=== PATIENT | female | born 1950 | race Caucasian/White ===

== ENCOUNTER 2022-01-20 15:18 | Emergency (ER) | payer MEDICARE, SELFPAY ==
--- NOTE | ~2022-01-20 | CT_ITS ---
EXAMINATION: CT abdomen pelvis wo con DATE: 01/20/2022 17:33 INDICATION: Abdominal cramping TECHNIQUE: Computed tomography (CT) of the abdomen and pelvis was performed without intravenous contr ast. The dose-length product (DLP) was 244.59 mGy-cm. Automated exposure control and iterative recons truction technique were employed. COMPARISON: None FINDINGS: Minimal dependent atelectasis is present in the lung bases. The heart size is normal. Bilat eral breast implants are noted. The liver, spleen, pancreas, gallbladder, and adrenal glands are norm al. The kidneys are unremarkable. No pathologically enlarged abdominal or pelvic lymph nodes are iden tified. There is no free intraperitoneal gas or evidence of bowel obstruction. Colonic diverticulosis is present without evidence of diverticulitis. There is severe lumbar spondylosis at L5-S1. There is an age-indeterminate burst fracture of T12. A fat-containing umbilical hernia is noted. IMPRESSION: 1. No CT correlate for the patient's symptoms. Reviewed, dictated and finalized at location F.
[2022-01-20 15:26] VITALS: BP 146/80; PULSE 94; RESP 16; TEMP 36.5; O2SAT 99
--- NOTE | 2022-01-20 17:22 | ED.ABDPAIN ---
HPI - Abdominal Pain General Chief Complaint: Abdominal Pain Stated Complaint: abd pain/constipation Time Seen by Provider: 01/20/22 17:07 History of Present Illness HPI narrative: 71-year-old female in no distress presents the emergency room for evaluation of abdominal cramping and constipation. Patient states she has been dealing with constipation for over 3 weeks, and has taken an Ex-Lax on 5 occasions over the course of that time with some resolution of symptoms. Patient states she has a low fiber diet. Patient denies fever. Patient states she has bloating and a fullness feeling throughout the day. Patient states that she sometimes get nauseated after she eats. Patient reports a small bowel movement today. Patient has no history of diverticulitis, or abdominal surgeries. Related Data Allergies Allergy/AdvReac Type Severity Reaction Status Date / Time No Known Allergies Allergy Unverified 11/18/20 16:02 Review of Systems Review of Systems: CONSTITUTIONAL: Denies fever, chills, or sweats. EYES: Denies visual changes, redness, or discharge. ENT: Denies rhinorrhea, congestion, sore throat, or otalgia. CARDIOVASCULAR: Denies chest pain, palpitations, or edema. RESPIRATORY: Denies cough or dyspnea. GASTROINTESTINAL: Reports abdominal bloating, occasional nausea, constipation GENITOURINARY: Denies dysuria or hematuria. SKIN: Denies rash or itching. MUSCULOSKELETAL: Denies back pain, joint pain, or myalgia. NEUROLOGIC: Denies headache, numbness, dizziness, or weakness. PSYCHIATRIC: Denies anxiety or depression. PMFSH Social History Social History Smoking status: Never smoker Smoking end date: 10/01/86 Alcohol intake: current Exam Narrative: GENERAL: Well-appearing, well-nourished, and in no acute distress. HEAD: Normocephalic, atraumatic. EYES: PERRLA and EOMI. CHEST: Clear to auscultation. No respiratory distress. No wheezes rales or rhonchi HEART: Regular rate and rhythm. No murmur heard. Normal peripheral pulses. ABDOMEN: Soft, nontender, nondistended, hypoactive bowel sounds EXTREMITIES: Normal range of motion. No edema. SKIN: Warm, dry, no rash. NEURO: No focal deficits. Alert and oriented x3. PSYCH: Normal mood and affect. Course Vital Signs Vital signs: Vital Signs Temperature 36.5 C 01/20/22 15:26 Pulse Rate 94 01/20/22 15:26 Respiratory Rate 16 01/20/22 15:26 Blood Pressure 146/80 H 01/20/22 15:26 Pulse Oximetry 99 01/20/22 15:26 Temperature 36.5 C 01/20/22 15:26 Pulse Rate 96 01/20/22 17:39 Respiratory Rate 18 01/20/22 17:39 Blood Pressure 141/71 H 01/20/22 17:39 Pulse Oximetry 98 01/20/22 17:39 MDM - Abdominal Pain MDM Narrative Medical decision making narrative: 71-year-old female presents the emergency room for Ration of constipation, bloating, and generalized abdominal pain for [address] scan showed no intra-abdominal abnormality. CBC and CMP were largely unremarkable. Differential Diagnosis Differential diagnosis: Likely constipation Lab Data Attestation: I reviewed the patient's lab results. Result diagrams: 01/20/22 17:47 01/20/22 17:47 Labs: Lab Results 01/20/22 01/20/22 01/20/22 Range/Units 17:47 17:47 17:47 WBC 11.9 H (4.5-10.0) K/mm3 RBC 4.69 (4.2-5.4) M/mm3 Hgb 14.1 (12.0-15.0) g/dL Hct 44.5 (37.0-47.0) % MCV 94.9 (80-100) fl MCH 30.1 (26-34) pg MCHC 31.7 L (32-36) g/dl RDW 13.1 (11.5-14.5) % Plt Count 209 (150-375) k/mm3 MPV 9.7 (7.4-10.4) fl Immature Gran % (Auto) 0.3 (0-0.5) % Neut % (Auto) 78.4 H (45.5-73.1) % Lymph % (Auto) 13.1 L (18.3-44.2) % [place] % (Auto) 6.6 (2.6-8.5) % Eos % (Auto) 1.3 (0-4.4) % Baso % (Auto) 0.3 (0.2-1.2) % Lymph # (Auto) 1.56 (0.9-3.2) K/mm3 [place] # (Auto) 0.8 H (0.1-0.6) K/mm3 Eos # (Auto) 0.2 (0-0.3) K/mm3 Baso # (Auto)
[2022-01-20 17:39] VITALS: BP 141/71; PULSE 96; RESP 18; O2SAT 98
[2022-01-20 17:54] LABS: Basophils Percent Auto 0.3 % (0.2-1.2); Eosinophils Absolute Auto 0.2 K/mm3 (0-0.3); Eosinophils Percent Auto 1.3 % (0-4.4); Hematocrit 44.5 % (37.0-47.0); Hemoglobin 14.1 g/dL (12.0-15.0); Immature Granulocyte Absolute 0.04 K/mm3 (0.00-0.031); Immature Granulocyte Percent A 0.3 % (0-0.5); Lymphocytes Absolute Auto 1.56 K/mm3 (0.9-3.2); Lymphocytes Percent Auto 13.1 % (18.3-44.2); Mean Corpuscular HGB Conc 31.7 g/dl (32-36); Mean Corpuscular Hemoglobin 30.1 pg (26-34); Mean Corpuscular Volume 94.9 fl (80-100); Mean Platelet Volume 9.7 fl (7.4-10.4); Monocytes Absolute Auto 0.8 K/mm3 (0.1-0.6); Monocytes Percent Auto 6.6 % (2.6-8.5); Neutrophils Absolute Auto 9.3 K/mm3 (1.3-6.7); Neutrophils Percent Auto 78.4 % (45.5-73.1); Platelet Count Result 209 k/mm3 (150-375); Red Blood Count 4.69 M/mm3 (4.2-5.4); Red Cell Distribution Width 13.1 % (11.5-14.5); White Blood Count 11.9 K/mm3 (4.5-10.0)
[2022-01-20 17:59] LABS: Add Urine Microscopic? YES; Amorphous Sediment Urine Few; Appearance Urine Cloudy (Clear); Bilirubin Urine Negative (Negative); Blood Urine Negative (Negative); Color Urine Yellow (Yellow); Glucose Urine UA 1+ mg/dL (Negative); Ketones Urine Trace mg/dL (Negative); Leukocyte Esterase Ur Negative LEU/UL (Negative); Mucus Urine Rare /lpf; Nitrate Urine Negative (Negative); Protein Urine Negative (Negative); RBC Urine 0-2 /hpf (0-2); Squamous Epithelial Cell Urine Rare /hpf (Few); Urobilinogen Urine Negative mg/dL (<2.0); WBC Urine 0-3 /hpf
[2022-01-20 18:05] LABS: Alanine Aminotransferase 73 U/L (4-35); Albumin Level 4.3 g/dL (3.5-5.1); Alkaline Phosphatase 97 U/L (38-126); Anion Gap 5 mmol/L (8-16); Aspartate Amino Transferase 44 U/L (14-36); Bilirubin,Total 0.1 mg/dL (0.2-1.3); Blood Urea Nitrogen 17 mg/dL (7-17); Calcium 9.4 mg/dL (8.4-10.2); Carbon Dioxide 30 mmol/L (22-30); Chloride 102 mmol/L (98-107); Estimated CRCL calculation 55 ml/min; Estimated Glomerular Filt Rate > 60; Glucose 193 mg/dL (65-110); Potassium 4.1 mmol/L (3.4-5.0); Sodium 137 mmol/L (137-145)
== END 2022-01-20 18:45 | disposition home or self-care (01) ==
LOC: ANHED 18:26
PROVIDERS: Emergency Provider Nurse Practitioner Family; PCP Internal Medicine
DX: K59.00 Constipation, unspecified (principal); Z87.891 Personal history of nicotine dependence
CPT/HCPCS: 36415; 74176; 80053; 81001; 85025; 99284

== ENCOUNTER 2022-02-13 12:34 | Outpatient (CLI) | payer MEDICARE, SELFPAY ==
--- NOTE | ~2022-02-13 | XR_ITS ---
XR shoulder RT min 2V 02/13/2022 13:03 Indication: Right shoulder pain Procedure: 4 views right shoulder Comparison: 07/27/2016 Findings: There is mild-moderate polyarticular osteoarthritis of the right shoulder. Osteopenia. Ther e are healed right rib fractures. No other fracture or traumatic malalignment. No significant soft ti ssue abnormality. No foreign bodies. Impression: 1: Mild-moderate polyarticular osteoarthritis of the right shoulder. Reviewed, dictated and finalized at location A. Impression: 1: Mild-moderate polyarticular osteoarthritis of the right shoulder.
== END 2022-02-13 12:35 | disposition home or self-care (01) ==
PROVIDERS: PCP Internal Medicine; Visit Provider Internal Medicine
DX: M19.011 Primary osteoarthritis, right shoulder (principal); G89.29 Other chronic pain; R53.1 Weakness
CPT/HCPCS: 73030

== ENCOUNTER 2022-05-10 14:06 | Outpatient (CLI) | payer MEDICARE, SELFPAY ==
--- NOTE | ~2022-05-10 | MM_ITS ---
EXAMINATION: MM scrn yvonne implant BI w justin HISTORY: Screening mammogram TECHNIQUE: Craniocaudal and mediolateral oblique 3-D tomosynthesis images with implant displacement a nd synthetic 2-D images were generated. Craniocaudal and mediolateral oblique views of the breasts wi thout implant displacement were obtained using full field digital mammography. CAD analysis was submi tted and interpreted. COMPARISON: No prior mammogram is available for comparison at this institution. BREAST PARENCHYMAL COMPOSITION: There are scattered areas of fibroglandular density. FINDINGS: There is no evidence of suspicious mass, calcification, or architectural distortion to sugg est malignancy in either breast. IMPRESSION: 1. No mammographic evidence of malignancy. 2. Recommend routine screening mammography in one year. BI-RADS Category 1: Negative Reviewed, dictated and finalized at location A.
--- NOTE | ~2022-05-10 | DEXA_ITS ---
Bone Density Report Name: ASA BREWER Age: 71 Sex: Female Ethnicity: White Date of : 1950 Indication: postmenopausal; screening for osteoporosis; height loss; prior fracture; Referring Provider: PHILLIP MOSCOSO Study: Bone densitometry was performed. Exam Date: May 10, 2022 Accession number: [id number] Bone Density: Region BMD T-score Z-score Classification AP Spine(L1-L4) 0.927 -1.1 1.1 Osteopenia Femoral Neck (Left) 0.611 -2.1 -0.3 Osteopenia Total Hip (Left) 0.732 -1.7 -0.1 Osteopenia Femoral Neck (Right) 0.642 -1.9 0.0 Osteopenia Total Hip (Right) 0.732 -1.7 -0.1 Osteopenia Total Hip Mean 0.732 -1.7 -0.1 Osteopenia World Health Organization criteria for BMD impression classify patients as: Normal (T-score at or above -1.0), Osteopenia (T-score between -1.0 and -2.5), or Osteoporosis (T-score at or below -2.5). 10-year Fracture Risk(1): Major Osteoporotic Fracture 18% Hip Fracture 4.1% Reported Risk Factors: [place] (), Neck BMD=0.611, BMI=20.6, previous fracture (1) FRAX(R) Version 3.08. Fracture probability calculated for an untreated patient. Fracture probability may be lower if the patient has received treatment. Clinical Information Provided by Patient: Has had a low trauma fracture Has used the following medications: Vitamin D Patient maximum height was 65 Menopause Age: 55 Does not regularly consume dairy products Drinks caffeinated beverages Onset of menses at age 14 Number of children 0 Impression: The patient has low bone mass, based on the Left Femoral Neck T-score. The patient has an estimated ten-year risk of hip fracture of 4.1% and an estimated ten-year risk of major fracture of 18%, based on the WHO FRAX algorithm. The patient has risk factors, including: previous fracture. Discussion: BONE DENSITY IS LOW AT ONE OR MORE SKELETAL SITES. THE PATIENT'S BMD AND CLINICAL RISK FACTORS CONTRIBUTE TO THIS PATIENT'S INCREASED RISK OF FRACTURE. This patient's lowest T-score is low at one or more skeletal sites. It meets the World Health Organization's (WHO) criteria for ?low bone mass? (T-score between -1.0 and -2.5). The patient's 10-year risk of hip fracture as calculated by FRAX exceeds the threshold where pharmacological therapy is recommended by the National Osteoporosis Foundation (NOF). However, all treatment decisions require clinical judgment and consideration of individual patient factors, including patient preferences, comorbidities, previous drug use, risk factors not captured in the FRAX model (e.g., frailty, falls, vitamin D deficiency, increased bone turnover, interval significant decline in bone density) and possible under or overestimation of fracture risk by FRAX. The patient should follow a healthful lifestyle (good nutr
== END 2022-05-10 14:07 | disposition home or self-care (01) ==
PROVIDERS: PCP Internal Medicine; Visit Provider Internal Medicine
DX: Z12.31 Encounter for screening mammogram for malignant neoplasm of breast (principal); Z78.0 Asymptomatic menopausal state; M85.89 Other specified disorders of bone density and structure, multiple sites
CPT/HCPCS: 77063; 77067; 77080

== ENCOUNTER 2022-11-01 15:16 | Outpatient (CLI) | payer MEDICARE, SELFPAY ==
--- NOTE | ~2022-11-01 | XR_ITS ---
EXAMINATION: XR chest 2V DATE: 11/01/2022 15:49 INDICATION: Cough, unspecified. TECHNIQUE: Frontal and lateral views of the chest were obtained. COMPARISON: CT abdomen and pelvis 01/20/2022 FINDINGS: There is mild scarring at the lung apices. No pleural effusion or pneumothorax. The heart s ize is normal. There are multiple old healed right rib fractures. There is a chronic burst fracture o f T12 superior endplate. IMPRESSION: 1. Mild scarring at the lung apices. Reviewed, dictated and finalized at location A. 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
== END 2022-11-01 15:17 | disposition home or self-care (01) ==
LOC: ANHIMG 15:20
PROVIDERS: PCP Internal Medicine; Visit Provider Internal Medicine
DX: R05.9 Cough, unspecified (principal); J98.4 Other disorders of lung
CPT/HCPCS: 71046

== ENCOUNTER 2023-03-26 19:32 | Emergency (ER) | payer MEDICARE, SELFPAY ==
--- NOTE | ~2023-03-26 | XR_ITS ---
EXAM: XR foot RT min 3V, XR ankle RT min 3V DATE: 03/26/2023 20:44 (accession [id number]), 03/26/2023 20:45 (accession [id number]) HISTORY: Fall 2 days . COMPARISON: None available. FINDINGS: Decreased mineralization. No fracture or dislocation. No lytic or blastic lesion. Severe d egenerative change at the first MTP joint. Mild degenerative change in the tibiotalar joint and multi ple midfoot joints. No erosion or periosteal change. Forefoot soft tissue swelling. Mild soft tissue swelling about the ankle. IMPRESSION: No acute osseous finding in the right foot or ankle. Reviewed, dictated and finalized at location K. IMPRESSION: No acute osseous finding in the right foot or ankle.
--- NOTE | ~2023-03-26 | XR_ITS ---
EXAM: XR hand RT min 3V, XR wrist RT 2V DATE: 03/26/2023 20:45 (accession [id number]), 03/26/2023 20:44 (accession [id number]) HISTORY: Fall bruising . COMPARISON: None available. FINDINGS: Decreased mineralization. Comminuted mildly impacted fracture of the distal right radius, with extension of fracture lines to the joint space. No lytic or blastic lesion. Scattered mild and m oderate osteoarthritic changes in the hand and wrist, most pronounced at the trapeziometacarpal joint . No erosion or periosteal change. Soft tissue swelling about the wrist. IMPRESSION: Comminuted, intra-articular, mildly impacted fracture of the distal right radius. Reviewed, dictated and finalized at location K. IMPRESSION: Comminuted, intra-articular, mildly impacted fracture of the distal right radius.
[2023-03-26 19:33] VITALS: BP 122/71; PULSE 89; RESP 18; TEMP 36.4; O2SAT 98
[2023-03-26] MEDS: ACETAMINOPHEN 500 MG TABLET 1000 MG PO (20:35)
[2023-03-26] MEDS: IBUPROFEN 400 MG TABLET 800 MG PO (20:36)
--- NOTE | 2023-03-26 22:05 | ED.GENADULT ---
HPI - General Adult General Chief complaint: Fall Stated complaint: fall/r wrist/foot pain Time Seen by Provider: 03/26/23 19:57 History of Present Illness HPI narrative: This is a 72-year-old female presenting ED after a fall. Patient was in [place] and tripped. she ended up kicking a wall and catching herself on her right wrist. She has had significant bruising of both her right ankle and her right wrist. For the ankle she has been able to bear weight able to walk. The risks has been more painful and she is concerned that she has a fractured wrist. Related Data Home Medications Medication Instructions Recorded Confirmed coenzyme Q10 75 mg capsule (Ultra 75 mg PO DAILY 02/07/22 11/01/22 CoQ10) glucosamine-chondroitin 500 mg-400 1 tablet PO DAILY 02/07/22 11/01/22 mg tablet vitamin E mixed 1,000 unit capsule unit PO 02/07/22 11/01/22 calcium carbonate 600 mg-vitamin 1 cap PO BID 05/16/22 11/01/22 D3 25 mcg (1,000 unit) capsule Allergies Allergy/AdvReac Type Severity Reaction Status Date / Time No Known Allergies Allergy Verified 03/26/23 19:33 [facility] Past Medical History Medical History BMI 20.0-20.9, adult BMI 21.0-21.9, adult Chronic sinusitis Constipation Cough DM type 2 (diabetes mellitus, type 2) CHENG (dyspnea on exertion) Dyslipidemia Elevated glucose Elevated LFTs Encounter to establish care Follow up Hx of colonic polyps Shoulder pain, right Social History Social History Smoking status: Former smoker Smoking end date: 10/01/86 Alcohol intake: current Lack of Transportation: No Lack of Food: Never True Current Housing: I Have Housing Concerned About Future Housing: No Difficulty Paying Gas/Electric Bills: No Difficulty Paying for Meds: No Currently Unemployed: No Education: Master's Degree or Higher Difficulty w/ Childcare or Family Care: No Exam Narrative: APPEARANCE: No apparent distress. Head: atraumatic. EYES: EOMI, NOSE: Atraumatic NECK: Trachea midline RESPIRATORY: No increased rate of breathing CARDIOVASCULAR: RRR, ABDOMINAL: Non-distended MUSCULOSKELETAl: focal exam of the right lower extremity revealed significant bruising and swelling diffusely over the foot. There is point tenderness over the ATFL. No tenderness over the lateral malleoli or the base of the 5th metatarsal. Focal exam of the right wrist show point tenderness over the distal radius, no scaphoid tenderness, foil operator strength intact, cap refill less than 2 seconds. neurovascularly intact. NEURO: Alert. Moving 4/4 extremities SKIN:: Warm, dry. Normal color PSYCHIATRIC: Normal affect Course Vital Signs Vital signs: Vital Signs Temperature 97.5 F L 03/26/23 19:33 Pulse Rate 89 03/26/23 19:33 Respiratory Rate 18 03/26/23 19:33 Blood Pressure 122/71 03/26/23 19:33 Pulse Oximetry 98 03/26/23 19:33 Oxygen Delivery Room Air 03/26/23 19:33 Temperature 97.5 F L 03/26/23 19:33 Pulse Rate 89 03/26/23 19:33 Respiratory Rate 18 03/26/23 19:33 Blood Pressure 122/71 03/26/23 19:33 Pulse Oximetry 98 03/26/23 19:33 Oxygen Delivery Room Air 03/26/23 19:33 Procedures Orthopedic Splinting/Casting Injury #1: Side: right Upper Extremity Injury Location: wrist Upper Extremity Immobilizer: volar splint Pre-Procedure Neuro Vascular Exam: normal Post-Procedure Neuro Vascular Exam: normal Medical Decision Making MDM Narrative Medical decision making narrative: -Presentation: 72-year-old female presenting 2 days after a fall. She has significant bruising to her right ankle and right hand. X-rays were ordered. -DDX includes but is not limited to: Ankle sprain, ankle fracture, radial fracture, soft tissue injury -Co-morbidities complicating care: none -Social determinants of health: patient o
== END 2023-03-26 22:29 | disposition home or self-care (01) ==
PROVIDERS: Emergency Provider Emergency Medicine; PCP Internal Medicine
DX: S52.501A Unspecified fracture of the lower end of right radius, initial encounter for closed fracture (principal); S93.401A Sprain of unspecified ligament of right ankle, initial encounter; E11.9 Type 2 diabetes mellitus without complications; E78.5 Hyperlipidemia, unspecified; Z87.891 Personal history of nicotine dependence; W01.0XXA Fall on same level from slipping, tripping and stumbling without subsequent striking against object, initial encounter
CPT/HCPCS: 29125; 73100; 73130; 73610; 73630; 99284; A9270; J2405; J2704

== ENCOUNTER 2023-07-03 00:10 | Day surgery (SDC) | payer MEDICARE, SELFPAY ==
[2023-06-21 10:16] VITALS: BMI 20.6
[2023-07-03 08:41] LABS: Glucose Point of Care 73 mg/dl (65-105)
[2023-07-03 08:43] VITALS: BP 127/67; PULSE 80; RESP 16; TEMP 36.2; O2SAT 99
[2023-07-03] MEDS: LACTATED RINGERS 1,000 ML 150 ML IV CONT (08:45)
--- NOTE | 2023-07-03 09:15 | PM.HPGS ---
History of Present Illness History of Present Illness Consent: Risks, benefits, and alternatives have been discussed and questions answered. Patient agrees to proceed with procedure. Chief complaint: personal hx of colon polyps Narrative: Georgina Lilly is a 72 year old female Presents for screening colonoscopy. Patient's current weight appetite and bowel movements are normal. Patient denies abdominal pain. She has had no bleeding. Family history noncontributory. Patient was found to have a benign colon polyp at previous colonoscopy 2018. Patient presents today for surveillance colonoscopy. Review of Systems Review of Systems: Review of systems noncontributory. [facility] Past Medical History Medical History (Updated 05/29/23 @ 15:07 by Stephanie Valdez [facility]) Adult BMI 19-24 kg/sq m BMI 20.0-20.9, adult BMI 21.0-21.9, adult Chronic sinusitis Constipation Cough DM type 2 (diabetes mellitus, type 2) CHENG (dyspnea on exertion) Dyslipidemia Elevated glucose Elevated LFTs Encounter for routine adult health examination with abnormal findings Encounter to establish care Follow up Fracture of right wrist Hx of colonic polyps Non-healing skin lesion Shoulder pain, right Social History Social History Smoking status: Never smoker Smoking end date: 10/01/86 Alcohol intake: current Drinks per week: 5 Substance use: never Substance use type: does not use Lack of Transportation: No Lack of Food: Never True Current Housing: I Have Housing Concerned About Future Housing: No Difficulty Paying Gas/Electric Bills: No Difficulty Paying for Meds: No Currently Unemployed: No Education: Master's Degree or Higher Difficulty w/ Childcare or Family Care: No Living arrangements: with family Spiritual care concerns: No Meds Home Medications and Allergies Home Medications Medication Instructions Recorded Confirmed Type glucosamine-chondroitin 500 mg-400 1 tablet PO DAILY 02/07/22 07/03/23 History mg tablet lancets 28 gauge #100 ea 02/20/22 06/21/23 Rx blood sugar diagnostic (OneTouch #100 ea 02/22/22 06/21/23 Rx Ultra Test strips) blood-glucose meter (OneTouch #1 ea 02/22/22 06/21/23 Rx Ultra2 Meter kit) calcium carbonate 600 mg-vitamin 1 cap PO BID 08/16/22 10/03/23 History D3 25 mcg (1,000 unit) capsule acetaminophen 500 mg tablet 1,000 mg PO TID PRN magy 7 days #42 03/26/23 07/03/23 Rx tabs ibuprofen 800 mg tablet 800 mg PO TID PRN pain 7 days #21 03/26/23 07/03/23 Rx tabs alendronate 70 mg tablet 70 mg PO WEEKLY #12 tabs 04/04/23 07/03/23 Rx dapagliflozin propaned 10 1 tablet PO DAILY #90 ea 04/04/23 07/03/23 Rx mg-metformin ER 1,000 mg tablet,ext rel 24hr (Xigduo XR) rosuvastatin 20 mg tablet See Rx Instructions .Route 04/04/23 07/03/23 Rx .COMPLEX #90 tabs vit 1 cap PO DAILY 05/29/23 07/03/23 History C,E,zinc,Cv-tiqka-1-lutein-zeaxanthin 250 mg-2.5 mg-0.5 mg capsule Allergies Allergy/AdvReac Type Severity Reaction Status Date / Time No Known Allergies Allergy Verified 07/03/23 08:40 Vital Signs Vital Signs - 24 hr 07/03/23 08:43 Temperature 97.2 F L Pulse Rate 80 Respiratory Rate 16 Blood Pressure 127/67 Pulse Oximetry 99 Oxygen Delivery Room Air Exam Narrative: Physical exam reveals patient to be alert. Vital signs stable. HEENT exam is unremarkable. Patient is anicteric. Lungs are clear to auscultation and percussion. Heart is without murmur or extra sounds. Abdomen bowel sounds are present soft nontender with no organomegaly. Digital external rectal exam is normal. Assessment and Plan Assessment and plan (1) Hx of colonic polyps: Code(s): Z86.010 - Personal history of colonic polyps Status: Acute Assessment and Plan: Patient presents for screening colonoscopy. She does have a prior history colon polyps. Furthe
--- NOTE | 2023-07-03 09:46 | WPDANESEPPF ---
Anes - Initial Pre Proc Eval Procedure: Operation Date: 07/03/23 10:00 Proposed Procedures p Colonoscopy - Reddy Duong MD Date/Time: 07/03/23 09:46 Surgeon: Reddy Duong MD Pre Op Diagnosis: personal hx of colon polyps Patient Data Age: 72 Gender: F Height: 1.63 m Weight: 50 kg Last Vital Signs Temp 97.2 F L 07/03/23 08:43 Pulse 80 07/03/23 08:43 Resp 16 07/03/23 08:43 BP 127/67 07/03/23 08:43 Pulse Ox 99 07/03/23 08:43 O2 Del Method Room Air 07/03/23 08:43 Allergies Allergy/AdvReac Type Severity Reaction Status Date / Time No Known Allergies Allergy Verified 07/03/23 08:40 Home Medications Medication Instructions Recorded Confirmed Type glucosamine-chondroitin 500 mg-400 1 tablet PO DAILY 02/07/22 07/03/23 History mg tablet lancets 28 gauge #100 ea 02/20/22 06/21/23 Rx blood sugar diagnostic (OneTouch #100 ea 02/22/22 06/21/23 Rx Ultra Test strips) blood-glucose meter (OneTouch #1 02/22/22 06/21/23 Rx Ultra2 Meter kit) calcium carbonate 600 mg-vitamin 1 cap PO BID 05/16/22 07/03/23 History D3 25 mcg (1,000 unit) capsule acetaminophen 500 mg tablet 1,000 mg PO TID PRN magy 7 days #42 03/26/23 07/03/23 Rx tabs ibuprofen 800 mg tablet 800 mg PO TID PRN pain 7 days #21 03/26/23 07/03/23 Rx tabs alendronate 70 mg tablet 70 mg PO WEEKLY #12 tabs 04/04/23 07/03/23 Rx dapagliflozin propaned 10 1 tablet PO DAILY #90 ea 04/04/23 07/03/23 Rx mg-metformin ER 1,000 mg tablet,ext rel 24hr (Xigduo XR) rosuvastatin 20 mg tablet See Rx Instructions .Route 04/04/23 07/03/23 Rx .COMPLEX #90 tabs vit 1 cap PO DAILY 05/29/23 07/03/23 History C,E,zinc,Tp-opiis-3-lutein-zeaxanthin 250 mg-2.5 mg-0.5 mg capsule Laboratory Tests 07/03/23 08:38 POC Capillary Glucose 73 mg/dl (65-105) Patient hx anesthesia problems: none Family hx anesthesia problems: none Results Review: All pre-operative results and documents have been reviewed as part of the pre-operative evaluation. [facility] Past Medical History Medical History (Updated 05/29/23 @ 15:07 by Stephanie Valdez [facility]) Adult BMI 19-24 kg/sq m BMI 20.0-20.9, adult BMI 21.0-21.9, adult Chronic sinusitis Constipation Cough DM type 2 (diabetes mellitus, type 2) CHENG (dyspnea on exertion) Dyslipidemia Elevated glucose Elevated LFTs Encounter for routine adult health examination with abnormal findings Encounter to establish care Follow up Fracture of right wrist Hx of colonic polyps Non-healing skin lesion Shoulder pain, right Social History Social History Smoking status: Never smoker Smoking end date: 10/01/86 Alcohol intake: current Drinks per week: 5 Substance use: never Substance use type: does not use Lack of Transportation: No Lack of Food: Never True Current Housing: I Have Housing Concerned About Future Housing: No Difficulty Paying Gas/Electric Bills: No Difficulty Paying for Meds: No Currently Unemployed: No Education: Master's Degree or Higher Difficulty w/ Childcare or Family Care: No Living arrangements: with family Spiritual care concerns: No Anes - Eval Final PreProcedure Day of Procedure 07/03/23 09:46 Patient weight: normal Heart: regular rate and rhythm Lungs: clear to auscultation Airway: Mallampati scale class II Neurological: alert and oriented Last oral intake: >/= 8 hours ASA classification: II Emergent: no Anesthetic plan: proceed Anesthesia type and monitoring: general GIVS and standard monitoring Results Review: All pre-operative results and documents have been reviewed as part of the pre-operative evaluation. Informed Consent: The patient's anesthetic plan and its attendant risks and benefits were discussed with the patient/family/POA. Questions were solicited and answers provided to the satisfaction of the patient/family/POA.
[2023-07-03] MEDS: SIMETHICONE ORAL SUSPENSION 20 MG/0.3 ML 30 ML BOTTLE 0.6 ML IRRIGATION (10:07)
[2023-07-03 10:15] VITALS: BP 95/47; PULSE 83; RESP 23; O2SAT 96
[2023-07-03 10:25] VITALS: BP 94/49; PULSE 83; RESP 16; O2SAT 97
[2023-07-03 10:35] VITALS: BP 113/69; PULSE 84; RESP 20; O2SAT 100
== END 2023-07-03 10:41 | disposition home or self-care (01) ==
PROVIDERS: PCP Internal Medicine; Visit Provider Internal Medicine Gastroenterology
PROC: 0DJD8ZZ Inspection of Lower Intestinal Tract, Via Natural or Artificial Opening Endoscopic (ICD-10-PCS; CPT 45378; principal; 2023-07-03 10:00)
DX: Z12.11 Encounter for screening for malignant neoplasm of colon (principal); K64.8 Other hemorrhoids; Z86.010 Personal history of colon polyps; E11.9 Type 2 diabetes mellitus without complications; E78.5 Hyperlipidemia, unspecified; Z79.84 Long term (current) use of oral hypoglycemic drugs; Z87.891 Personal history of nicotine dependence
CPT/HCPCS: G0105; 82948; J2704; J7120

== ENCOUNTER 2023-08-13 08:00 | Outpatient (NON) | payer MEDICARE, SELFPAY | END 2023-08-13 08:01 | disposition home or self-care (01) | LOC: ANHLAB 08-15 13:21 | PROVIDERS: PCP Internal Medicine; Visit Provider Nurse Practitioner | DX: L82.1 Other seborrheic keratosis (principal) | CPT/HCPCS: 88305; 88342 ==

== ENCOUNTER 2024-01-21 14:59 | Outpatient (CLI) | payer MEDICARE, SELFPAY ==
--- NOTE | ~2024-01-21 | MM_ITS ---
EXAMINATION: MM scrn yvonne implant BI w justin HISTORY: Screening mammogram TECHNIQUE: Craniocaudal and mediolateral oblique 3-D tomosynthesis images with implant displacement a nd synthetic 2-D images were generated. Craniocaudal and mediolateral oblique views of the breasts wi thout implant displacement were obtained using full field digital mammography. CAD analysis was submi tted and interpreted. COMPARISON: 05/10/2022 bilateral implant screening mammogram BREAST PARENCHYMAL COMPOSITION: There are scattered areas of fibroglandular density. FINDINGS: Status post bilateral augmentation mammoplasty. There is no evidence of suspicious mass, ca lcification, or architectural distortion to suggest malignancy in either breast. There has been no pittman spicious interval change. IMPRESSION: 1. No mammographic evidence of malignancy. 2. Recommend routine screening mammography in one year. BI-RADS Category 1: Negative Reviewed, dictated and finalized at location A.
== END 2024-01-21 15:00 | disposition home or self-care (01) ==
LOC: ANHIMG 15:11
PROVIDERS: PCP Internal Medicine; Visit Provider Internal Medicine
DX: Z12.31 Encounter for screening mammogram for malignant neoplasm of breast (principal)
CPT/HCPCS: 77063; 77067

== ENCOUNTER 2024-06-02 15:57 | Emergency (ER) | payer MEDICARE, SELFPAY ==
--- NOTE | ~2024-06-02 | XR_ITS ---
EXAMINATION: XR knee RT min 4V DATE: 06/02/2024 16:49 INDICATION: Fall with right knee injury TECHNIQUE: Anteroposterior, 2 oblique, sunrise and crosstable lateral views of the right knee were ob tained COMPARISON: None. FINDINGS: There is distraction of a transverse intra-articular fracture extending across the central aspect of the patella. There is 7 mm widening of the superficial margin of the fracture plane. 1-2 mm separatio n and smaller degree of step-off along the articular surface at the deep margin of the fracture. No o ther fractures identified. Tricompartmental osteoarthritis at the right knee with small marginal oste ophytes and at least mild joint space narrowing the medial and lateral compartments although this cou ld be underestimated on nonweightbearing imaging. There is a moderate-sized layering lipohemarthrosis at the suprapatellar pouch. There are few loose osteochondral bodies at the posterior recess of the knee. IMPRESSION: 1. Mild distraction of an intra-articular fracture extending horizontally across the patella with mod erate-sized lipohemarthrosis. 2. At least mild tricompartmental osteoarthritis at the right knee. Reviewed, dictated and finalized at location A. IMPRESSION: 1. Mild distraction of an intra-articular fracture extending horizontally acros s the patella with moderate-sized lipohemarthrosis. 2. At least mild tricompartmental osteoarthritis at the right knee.
[2024-06-02 15:59] VITALS: BP 183/82; PULSE 83; RESP 18; TEMP 36.4; O2SAT 100
--- NOTE | 2024-06-02 16:14 | ED.LOWEXIN ---
HPI - Extremity Injury (Lower) General Chief Complaint: Extremity Injury, Lower <Domingo Burton PA-C - Last Filed: 06/02/24 16:14> Stated Complaint: tripped on concrete, R knee pain <Domingo Burton PA-C - Last Filed: 06/02/24 16:14> Time Seen by Provider: 06/02/24 16:05 <Domingo Burton PA-C - Last Filed: 06/02/24 16:14> Focused HPI: This is a 73-year-old female who presents to the ED with chief complaint of right knee injury that occurred just prior to arrival. Patient states that she tripped and fell directly onto the concrete. Reports a lot of pain and swelling to the right knee but no further sites of pain or injury. She took ibuprofen prior to arrival. Denies numbness, weakness. GENERAL: Well-appearing, well-nourished, and in no acute distress. HEAD: Normocephalic, atraumatic. CHEST: Clear to auscultation. No respiratory distress. HEART: Regular rate and rhythm. MSK: Right knee swelling noted. Tenderness throughout the right knee. Able to slightly actively range the knee. NEURO: Alert and oriented x3. Patient screened in triage and initial orders placed. Additional care and disposition to be based upon diagnostic testing and treatment. <Domingo Burton PA-C - Last Filed: 06/02/24 16:14> Focused HPI: This is a 73-year-old female who presents to the ED with chief complaint of right knee injury that occurred just prior to arrival. Patient states that she tripped and fell directly onto the concrete. Reports a lot of pain and swelling to the right knee but no further sites of pain or injury. She took ibuprofen prior to arrival. Denies numbness, weakness. GENERAL: Well-appearing, well-nourished, and in no acute distress. HEAD: Normocephalic, atraumatic. CHEST: Clear to auscultation. No respiratory distress. HEART: Regular rate and rhythm. MSK: Right knee swelling noted. Tenderness throughout the right knee. Able to slightly actively range the knee. NEURO: Alert and oriented x3. Patient screened in triage and initial orders placed. Additional care and disposition to be based upon diagnostic testing and treatment. <Negrita Varghese PA-C - Last Filed: 06/02/24 18:27> Source: patient <Domingo Burton PA-C - Last Filed: 06/02/24 16:14> Mode of arrival: wheelchair <Domingo Burton PA-C - Last Filed: 06/02/24 16:14> Limitations: no limitations <Domingo Burton PA-C - Last Filed: 06/02/24 16:14> Related Data Home Medications: Home Medications Medication Instructions Recorded Confirmed glucosamine-chondroitin 500 mg-400 1 tablet PO DAILY 02/07/22 07/19/23 mg tablet calcium carbonate 600 mg-vitamin 1 cap PO BID 05/16/22 07/19/23 D3 25 mcg (1,000 unit) capsule vit 1 cap PO DAILY 05/29/23 07/19/23 C,E,zinc,Bt-bvhhd-9-lutein-zeaxanthin 250 mg-2.5 mg-0.5 mg capsule <Domingo Burton PA-C - Last Filed: 06/02/24 16:14> Allergies/Adverse Reactions: Allergies Allergy/AdvReac Type Severity Reaction Status Date / Time No Known Allergies Allergy Verified 07/19/23 14:19 <Domingo Burton PA-C - Last Filed: 06/02/24 16:14> Review of Systems Review of Systems: CONSTITUTIONAL: Denies fever MUSCULOSKELETAL: Reports joint pain, and myalgia. NEUROLOGIC: Denies numbness, or weakness. <Negrita Varghese PA-C - Last Filed: 06/02/24 18:27> All systems reviewed & are unremarkable except as noted in HPI and below <Negrita Varghese PA-C - Last Filed: 06/02/24 18:27> [facility] Past Medical History Medical History: Medical History (Updated 06/02/24 @ 18:24 by Negrita Varghese PA-C) Adult BMI 19-24 kg/sq m BMI 20.0-20.9, adult BMI 21.0-21.9, adult Cholesterol polyp of gallbladder Chronic sinusitis Constipation Cough DM type 2 (diabetes mellitus, type 2) CHENG (dyspnea on exertion) Dyslipidemia Elevated glucose Elevated LFTs Encounter for Medicare annual wellness exam Encounter for routine adult health examination with abnormal findings Encoun
[2024-06-02 17:01] VITALS: BP 175/91; O2SAT 97
[2024-06-02 17:02] VITALS: O2SAT 99
[2024-06-02] MEDS: HYDROcodone/acetaminophen (*CRX) 5-325 MG TABLET 1 TAB PO (17:37)
== END 2024-06-02 18:50 | disposition home or self-care (01) ==
PROVIDERS: Emergency Provider Physician Assistant; PCP Internal Medicine
DX: S82.031A Displaced transverse fracture of right patella, initial encounter for closed fracture (principal); E11.9 Type 2 diabetes mellitus without complications; W01.0XXA Fall on same level from slipping, tripping and stumbling without subsequent striking against object, initial encounter
CPT/HCPCS: 73564; 99284; A9270

== ENCOUNTER 2025-03-16 13:59 | Outpatient (CLI) | payer MEDICARE, SELFPAY ==
--- NOTE | ~2025-03-16 | MM_ITS ---
EXAMINATION: MM scrn yvonne implant BI w justin HISTORY: Screening mammogram TECHNIQUE: Craniocaudal and mediolateral oblique 3-D tomosynthesis images with implant displacement a nd synthetic 2-D images were generated. Craniocaudal and mediolateral oblique views of the breasts wi thout implant displacement were obtained using full field digital mammography. CAD analysis was submi tted and interpreted. COMPARISON: Comparison to multiple prior studies sequentially, with oldest reviewed study dated 05/10. BREAST PARENCHYMAL COMPOSITION: Not dense: There are scattered areas of fibroglandular density. FINDINGS: There is no evidence of suspicious mass, calcification, or architectural distortion to sugg est malignancy in either breast. There has been no suspicious interval change. IMPRESSION: 1. No mammographic evidence of malignancy. 2. Recommend routine screening mammography in one year. BI-RADS Category 1: Negative Reviewed, dictated and finalized at location A.
--- OUTSIDE RECORDS SUMMARY | 2025-03-16 15:06 | XMS_ITS | Clinical Summary ---
Author Organization [facility] Address [address] [place] [address] Care Team Providers Care Ticket Manager Name Role Phone No, Physician Primary Care Provider [phone] Allergies No known active allergies Medications alendronate (FOSAMAX) 70 mg tablet Oral for 84 Days 06/03/2022 Active Xigduo XR 10-1,000 mg tablet, IR & ER, biphasic 24hr Oral for 90 Days 06/03/[address] (VOLTAREN) 75 mg EC tablet Take 1 tablet (75 mg total) by mouth 2 (two) times a day 07/30/2019 Active rosuvastatin (CRESTOR) 20 mg tablet 04/21/2024 Active ibuprofen (ADVIL,MOTRIN) 400 mg tablet Take by mouth every 6 (six) hours as needed for pain Active Active Problems Problem Noted Date Diagnosed Date Closed nondisplaced fracture of right patella with routine healing 06/04/2024 Impingement syndrome of right shoulder 9 Lumbar spondylosis 07/30/2019 Traumatic closed fracture of distal clavicle with minimal displacement, left, initial encounter 07/30/2019 Pain of foot 07/02/2017 Chest pain 06/11/2017 Loose body of knee 07/26/2015 Family History Medical History Relation Name Comments Arthritis Mother Family history of arthritis - (Added by TW Conv) Relation Name Status Comments Mother Social History Tobacco Use Types Packs/Day Years Used Date Smoking Tobacco: Former Comments Unknown Sex and Gender Information Value Date Recorded Sex Assigned at Not on file Legal Sex Female 3:06 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 [employer]AY[employer] Gender Identity Not on file Sexual Orientation Not on file Obstetrics History Last Filed Vital Signs Vital Sign Reading Time Taken Comments Blood Pressure 146/92 06/11/2017 9:25 AM CDT Pulse 100 06/11/2017 9:25 AM CDT Temperature - - Respiratory Rate - - Oxygen Saturation 96% 06/11/2017 9:25 AM CDT Inhaled Oxygen Concentration - - Weight 60.8 kg (133 lb 15.9 oz) 06/11/2017 9:25 AM CDT Height 165.1 cm (5' 5) 06/11/2017 9:25 AM CDT Body Mass Index 22.3 06/11/2017 9:25 AM CDT Plan of Treatment Health Maintenance Due Date Last Done Comments Colon Cancer Screening-Colonoscopy 1950 Depression Screening 1950 Fall Risk Assessment 1950 Hepatitis C Screening 1950 DTaP/Tdap/Td Vaccine (1 - Tdap) 1961 Hepatitis B Screening 1968 Pneumococcal vaccine 65+ (1 of 1 - PCV) 2000 Zoster Vaccine (1 of 2) 2000 Well Visit 65+ 2015 Breast Cancer Screening-Mammogram 09/12/2018 09/12/2017, 09/11/2016, 08/30/2015, Additional history exists Osteoporosis Screening-Bone Density Scan 11/27/2018 11/27/2016, 08/18/2013 Covid-19 Vaccine (2023-2 5 season) 2024 08/11/2021, 11/12/2020, 2020 Influenza Vaccine (Season Ended) 2025 08/11/2021, 08/28/2018, 10/18/2017 Procedures Procedure Name Priority Date/Time Associated Diagnosis Comments SCREENING MAMMOGRAM BILATERAL W MARK W IMPLANTS Routine 09/12/2017 12:00 AM [employer]RAFTER [employer]OUT DEXA AXIAL SKELETON BONE DENSITY 1 OR MORE SITES Routine 11/27/2016 9:07 AM 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 S/P bilateral augmentation. No complaints. Comparison is made to exams dated: 09/11/2016, 08/30/2015, 08/24/2014, 08/18/2013, 08/15/2012, and 08/10/2011 [facility]. There are scattered fibroglandular elements in both breasts. Current study was also evaluated with a Computer Aided Detection (CAD) system. Bilateral subpectoral silicone gel implants are stable. Bilateral subpectoral silicone gel implants have fibrous encapsulation. Left subpectoral silicone gel implant has an irregular wall as well as an inner wall rupture. There is a questionable small amount of free silicone in the left axilla, stable. No significant masses, calcifications, or other findings are seen in either breast. IMPRESSION: BENIGN There is no mammographic evidence of malignancy. A 1 year screening mammogram is recommended. The patient will be contacted by letter. Teodroa Sultana M.D. lrp/:09/13/2017 10:41:10 letter sent: Normal Exam Mammogram BI-RADS: 2 Benign Radiologist: TEODORA SULTANA M.D. Attending: ARCENIO GLEASON Requesting: ARCENIO GLEASON Requesting Requesting ID: [id number] Attending Attending ID: [id number] Completed Time: 09/12/2017 10:51 AM Dictated Time: N/A Transcribed Time: 09/13/2017 2:36 PM Signed by: TEODORA SULTANA M.D. on 09/13/2017 2:36 PM Report To 1 ID: Report To 1 Name: , Report To 1 FAX: Report To 2 ID: Report To 2 Name: , Report To 2 FAX: Report To 3 ID: Report To 3 Name: , Report To 3 FAX: NextGen Order #: Procedure Note Miscellaneous, Not In File - 09/13/2017 - SCREENING MAMM W IMPLANTS BI W MARK BILATERAL DIGITAL SCREENING MAMMOGRAM 3D/2D WITH CAD WITH AUGMENTATION: 09/12/2017 CLINICAL: Patient presents for screening mammogram. S/P bilateral augmentation. No complaints. Comparison is made to exams dated: 09/11/2016, 08/30/2015, 08/24/2014, 08/18/2013, 08/15/2012, and 08/10/2011 [facility]. There are scattered fibroglandular elements in both breasts. Current study was also evaluated with a Computer Aided Detection (CAD) system. Bilateral subpectoral silicone gel implants are stable. Bilateral subpectoral silicone gel implants have fibrous encapsulation. Left subpectoral silicone gel implant has an irregular wall as well as an inner wall rupture. There is a questionable small amount of free silicone in the left axilla, stable. No significant masses, calcifications, or other findings are seen in either breast. IMPRESSION: BENIGN There is no mammographic evidence of malignancy. A 1 year screening mammogram is recommended. The patient will be contacted by letter. Teodora Sultana M.D. lrp/:09/13/2017 10:41:10 letter sent: Normal Exam Mammogram BI-RADS: 2 Benign Radiologist: TEODORA SULTANA M.D. Attending: ARCENIO GLEASON Requesting: ARCENIO GLEASON Requesting Requesting ID: [id number] Attending Attending ID: [id number] Completed Time: 09/12/2017 10:51 AM Dictated Time: N/A Transcribed Time: 09/13/2017 2:36 PM Signed by: TEODORA SULTANA M.D. on 09/13/2017 2:36 PM Report To 1 ID: Report To 1 Name: , Report To 1 FAX: Report To 2 ID: Report To 2 Name: , Report To 2 FAX: Report To 3 ID: Report To 3 Name: , Report To 3 FAX: NextGen Order #: Arcenio Gleason MD IMG MAMMO PROCEDURES Edite d Result - Final * Dexa Axial Skeleton Bone Density 1 or 2 Site (11/27/2016 9:07 AM [employer]) Anatomical Region Laterality Modality Body N/A Radiographic Marie ging 11/27/2016 9:07 AM [employer] Narrative 11/27/2016 9:29 AM [employer] EXAM: Bone mineral density [facility]. HISTORY: Postmenopausal female currently taking calcium and vitamin D. DXA BMD was done at [facility] on a [email or web address] Discovery CI. Precision testing at this site has resulted in a least significant change of: Lumbar spine 0.035 g/sq cm Hip 0.025 g/sq cm BMD L1-L4 is 0.847 g/sq cm corresponding to a T score of -1.8. BMD left femoral neck is 0.622 g/sq cm corresponding to a T score of -2.0. BMD total left hip is 0.819 g/sq cm corresponding to a T score of -1.0. COMPARISON: When comparison is made with prior bone densitometry dated 08/18/2013, there has been 5.5% interval increase in total bone mineral density of the lumbar spine and no significant interval change in total bone mineral density of the left hip. IMPRESSION: Low bone mass (osteopenia) which depending on the clinical circumstances may result in a moderate increased risk of fragility fracture. If followup is to be done, for technical reasons, it should be performed on this same machine. Electronically signed by: Camryn Meza M.D. Radiologist: CAMRYN MEZA M.D. Attending: KUNAL MAYO M.D. Requesting: KUNAL MAYO M.D. Requesting Requesting ID: [id number] Attending Attending ID: [id number] Completed Time: 11/27/2016 09:07 AM Dictated Time: N/A Transcribed Time: 11/27/2016 09:29 AM Signed by: CAMRYN MEZA M.D. on 11/27/2016 09:29 AM Report To 1 ID: [id number] Report To 1 Name: CIARRA SON Report To 1 FAX: Report To 2 ID: Report To 2 Name: , Report To 2 FAX: Report To 3 ID: Report To 3 Name: , Report To 3 FAX: NextGen Order #: Procedure Note Provider, MD Hue - 02/05/2017 EXAM: Bone mineral density [facility]. HISTORY: Postmenopausal female currently taking calcium and vitamin D. DXA BMD was done at [facility] on a [employer] Discovery CI. Precision testing at this site has resulted in a least significant change of: Lumbar spine 0.035 g/sq cm Hip 0.025 g/sq cm BMD L1-L4 is 0.847 g/sq cm corresponding to a T score of -1.8. BMD left femoral neck is 0.622 g/sq cm corresponding to a T score of -2.0. BMD total left hip is 0.819 g/sq cm corresponding to a T score of -1.0. COMPARISON: When comparison is made with prior bone densitometry dated 08/18/2013, there has been 5.5% interval increase in total bone mineral density of the lumbar spine and no significant interval change in total bone mineral density of the left hip. IMPRESSION: Low bone mass (osteopenia) which depending on the clinical circumstances may result in a moderate increased risk of fragility fracture. If followup is to be done, for technical reasons, it should be performed on this same machine. Electronically signed by: Camryn Meza M.D. Radiologist: CAMRYN MEZA M.D. Attending: KUNAL MAYO M.D. Requesting: KUNLA MAYO M.D. Requesting Requesting ID: [id number] Attending Attending ID: [id number] Completed Time: 11/27/2016 09:07 AM Dictated Time: N/A Transcribed Time: 11/27/2016 09:29 AM Signed by: CAMRYN MEZA M.D. on 11/27/2016 09:29 AM Report To 1 ID: [id number] Report To 1 Name: CIARRA SON Report To 1 FAX: Report To 2 ID: Report To 2 Name: , Report To 2 FAX: Report To 3 ID: Report To 3 Name: , Report To 3 FAX: NextGen Order #: Historical Provider MD WATSON DXA PROCEDURES Final Result from Last 3 Months or Most Recently Relevant to Health Maintenance Insurance MEDICARE [facility] [employer] CHOICE MEDICARE PPO [employer] MEDICARE PPO Care Teams Ticket Manager Relationship Specialty Start Date End Date No, Physician PCP - General 06/03/24
--- OUTSIDE RECORDS SUMMARY | 2025-03-16 15:06 | XMS_ITS | Clinical Summary ---
Author Organization [facility] Address [address] [place] [address] Phone Care Team Providers Care Automotive Parts Person Name Role Phone Carissa Cabrera, Physician Primary Care Provider Unav ailable Allergies No known active allergies Medications diclofenac sodium (VOLTAREN) 75 mg Tablet, Delayed Release (E.C.) Take 1 Tablet (75 mg) by mouth 2 times daily. 60 Tablet 3 07/30/2019 Active Active Problems Problem Noted Date Diagnosed Date Impingement syndrome of right shoulder 9 Lumbar spondylosis 07/30/2019 Traumatic closed fracture of distal clavicle with minimal displacement, left, initial encounter 07/30/2019 Social History Tobacco Use Types Packs/Day Years Used Date Smoking Tobacco: Former Smokeless Tobacco: Never Comments No Sex and Gender Information Value Date Recorded Sex Assigned at Not on file Legal Sex Female 12:21 PM CDT Gender Identity Not on file Sexual Orientation Not on file Last Filed Vital Signs Vital Sign Reading Time Taken Comments Blood Pressure 132/76 07/30/2019 9:25 AM CDT Pulse - - Temperature - - Respiratory Rate - - Oxygen Saturation - - Inhaled Oxygen Concentration - - Weight 60.3 kg (133 lb) 07/30/2019 9:25 AM CDT Height 165.1 cm (5' 5) 07/30/2019 9:25 AM CDT Body Mass Index 22.13 07/30/2019 9:25 AM CDT Plan of Treatment Health Maintenance Due Date Last Done Comments DTAP/TDAP/TD VACCINES (1 - Tdap) 1969 BREAST CANCER SCREENING 1990 COLORECTAL SCREENING 1995 Colorectal Cancer Screening 1995 FIT-DNA Q 3 years 1995 FIT/FOBT Q 1 year 1995 Flex Sig/CT Colonography Q 5 years 1995 PNEUMOCOCCAL VACCINE 50+ YEARS (1 of 1 - PCV) 10/12/19 ZOSTER VACCINE (1 of 2) 2000 OSTEOPOROSIS SCREENING 2015 INFLUENZA VACCINE (#1) 2024 10/18/2017 RSV VACCINE (60+ or ) (1 - 1-dose 75+ series) 2025 Insurance MEDICARE PART A AND B BCBS SUPP Care Teams Automotive Parts Person Relationship Specialty Start Date End Date Carissa Cabrera PhysicianMD [address] [place]: [employer] Ed[employer] SolutionsVan [place] [address] PCP - General Internal Medicine 07/30/19
--- OUTSIDE RECORDS SUMMARY | 2025-03-16 15:06 | XMS_ITS | Clinical Summary ---
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 Gender Identity Not on file Sexual Orientation Not on file Plan of Treatment Health Maintenance Due Date Last Done Comments DEXA Bone Density 1950 Hepatitis C Virus (HCV) Screening 1950 TdaP Immunization 1950 Colonoscopy 1995 Colorectal Cancer Screening 1995 Cologuard 2000 Immunochemical Fecal Occult Blood 2000 Mammogram 2000 Pneumococcal Immunization (5 0+ years) (1 of 1 - PCV) 2000 Zoster Immunization (1 of 2) 2000 Influenza Immunization (#1) 2024 10/18/2017 SARS-COV-2 Immunization (2 - season) 2024 2020 Respiratory Syncytial Virus (RSV) Immunization (Adult) (1 - 1-dose 75+ series) 2025 Hepatitis B Immunization Aged Out No longer eligible based on patient's age to complete this topic Meningococcal Immunization (ACWY) Aged Out No longer eligible based on patient's age to complete this topic Rotavirus Immunization Aged Out No lo nger eligible based on patient's age to complete this topic
--- OUTSIDE RECORDS SUMMARY | 2025-03-16 15:06 | XMS_ITS | Clinical Summary ---
Author Organization [facility] Address [address] [place] [address] Care Team Providers Care Ems Coordinator Name Role Phone Arcenio Gleason MD Primary Care Provider Source Comments [facility],non-owned Affiliates and Associated Physician Practices is amultiple site organization consisting of ambulatory clinics and hospital sitesin [place], [place], [place] and [place]. This disclosure is being madepursuant to the Care Everywhere program and may not contain all information available regarding this patient. Last updated 18.[facility] Allergies No known active allergies Medications * Be aware that medications may not be up to date on this document. Alwaysverify current medications with the patient. No known medications Immunizations Immunization Administration Dates Next Due INFLUENZA VACCINE, HIGH-DOSE , QUADR. 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 Gender Identity Not on file Sexual Orientation Not on file Last Filed Vital Signs Vital Sign Reading Time Taken Comments Blood Pressure 110/80 11/27/2018 12:11 PM COMPRESSOR MECHANIC BUS Pulse 99 11/27/2018 12:11 PM COMPRESSOR MECHANIC BUS Temperature 37.2 C (98.9 F) 11/27/2018 12:11 PM COMPRESSOR MECHANIC BUS Respiratory Rate 16 11/27/2018 12:11 PM COMPRESSOR MECHANIC BUS Oxygen Saturation 98% 11/27/2018 12:11 PM COMPRESSOR MECHANIC BUS Inhaled Oxygen Concentration - - Weight 56.7 kg (125 lb) 11/27/2018 12:11 PM COMPRESSOR MECHANIC BUS Height 162.6 cm (5' 4) 11/27/2018 12:11 PM COMPRESSOR MECHANIC BUS Body Mass Index 21.46 11/27/2018 12:11 PM COMPRESSOR MECHANIC BUS Plan of Treatment Health Maintenance Due Date Last Done Comments BONE DENSITY TESTING 1950 COLOGUARD (AGES 45-75) - COL ON CA SCREENING 1950 COLON MONITORING 1950 COLONOSCOPY - COLON CA SCREENING 1950 CT COLONOGRAPHY - COLON CA SCREENING 1950 Colorectal Cancer Screening 1950 FIT - COLON CA SCREENING 1950 FLEX SIG - COLON CA SCREENING 1950 LIPID TESTING 1950 MAMMOGRAM 1950 HEPATITIS C SCREENING 10/07/1968 DTAP/TDAP/TD VACCINES (1 - Tdap) 1969 PNEUMOCOCCAL VACCINE 50+ (1 of 1 - PCV) 2000 ZOSTER VACCINE (1 of 2) 2000 COVID-19 VACCINE (1 - 2023-2 5 season) 2024 DEPRESSION SCREENING 10/01/2024 MEDICARE AWV CALENDAR YEAR 2024 INFLUENZA VACCINE (Season Ended) 2025 10/18/19 18 Respiratory Syncytial Virus (RSV) Vaccine Pt: or over 60 yrs (1 - 1-dose 75+ series) 2025 HEPATITIS B VACCINE Aged Out No longe r eligible based on patient's age to complete this topic HIB VACCINE Aged Out No longer eligi ble based on patient's age to complete this topic HPV VACCINE Aged Out No longer eligi ble based on patient's age to complete this topic MENINGOCOCCAL (Group B) VACC INE SHARED DECISION-MAKING Aged Out No longer eligibl e based on patient's age to complete this topic MENINGOCOCCAL GROUPS A/C/Y/W VACCINE Aged Out No longer eligible b ased on patient's age to complete this topic Insurance * Guarantor: Georgina Ayala Account Type Relation to Patient Date of Phone Billing Address Personal/Family Self [address] [place] [id number] [employer] MEDICARE ADV HMO & PPO [facility] * Guarantor: Georgina Ayala Account Type Relation to Patient Date of Phone Billing Address Personal/Family Self [address] [place] [id number] [place] [address] Care Teams Ems Coordinator Relationship Specialty Start Date End Date Arcenio Gleason MD [address] [place] [address] PCP - General Family Medicine 10/18/17
--- OUTSIDE RECORDS SUMMARY | 2025-03-16 15:06 | XMS_ITS | Referral Summary ---
Author Organization [facility] Address [address] [place] [address] Care Team Providers Care Equipment Operat0R Name Role Phone No, Physician Primary Care Provider [phone] Allergies No known active allergies Medications alendronate [...] pain 06/11/2017 Loose body of knee 07/26/2015 Social History Tobacco Use Types Packs/Day Years Used Date Smoking Tobacco: Former Comments Unknown Sex and Gender Information Value Date Recorded Sex Assigned at Not on file Legal Sex Female 3:06 PM DAYCARE PROVIDER Gender Identity Not on file Sexual Orientation [...] 06/11/2017 9:25 AM CDT Plan of Treatment Not on file Procedures Procedure Name Priority Date/Time Associated Diagnosis Comments SCREENING MAMMOGRAM BILATERAL W MARK W IMPLANTS Routine 09/12/2017 12:00 AM DAYCARE PROVIDER DEXA AXIAL SKELETON BONE DENSITY 1 OR MORE SITES Routine 11/27/2016 9:07 AM DAYCARE PROVIDER from Last 3 Months or Most Recently Relevant to Health Maintenance Results * Screening Mammogram Bilateral W Mark W Implants (09/12/2017 12:00 AM DAYCARE PROVIDER) Anatomical Region Laterality Modality Breast Bilateral Mammography 09/12/2017 4:51 PM DAYCARE PROVIDER Narrative 09/13/2017 8:36 PM DAYCARE PROVIDER - SCREENING MAMM W IMPLANTS BI W MARK BILATERAL DIGITAL SCREENING MAMMOGRAM 3D/2D WITH CAD WITH AUGMENTATION: 09/12/2017 CLINICAL: Patient presents for screening mammogram. S/P bilateral augmentation. No complaints. Comparison is made to exams dated: 09/11/2016, 08/30/2015, 08/24/2014, 08/18/2013, 08/15/2012, and 08/10/2011 [facility]. There are scattered fibroglandular elements in both [...] GLEASON Requesting: ARCENIO GLEASON Requesting Requesting ID: [id number] Attending Attending ID: [id number] Completed Time: 09/12/2017 10:51 AM Dictated Time: [...] 09/11/2016, 08/30/2015, 08/24/2014, 08/18/2013, 08/15/2012, and 08/10/2011 [facility]. There are scattered fibroglandular elements in both [...] be contacted by letter. Teodora Sultana M.D. [facility]/:09/13/2017 10:41:10 letter sent: Normal Exam Mammogram BI-RADS: 2 Benign Radiologist: TEODORA SULTANA M.D. Attending: ARCENIO GLEASON Requesting: ARCENIO GLEASON Requesting Requesting ID: [id number] Attending Attending ID: [id number] Completed Time: 09/12/2017 10:51 AM Dictated Time: [...] 1 or 2 Site (11/27/2016 9:07 AM DAYCARE PROVIDER) Anatomical Region Laterality Modality Body N/A Radiographic Marie ging 11/27/2016 9:07 AM DAYCARE PROVIDER Narrative 11/27/2016 9:29 AM DAYCARE PROVIDER EXAM: Bone mineral density [facility]. HISTORY: Postmenopausal female currently taking calcium and vitamin D. DXA BMD was done at [facility] on a APJeT CI. Precision testing at this site has [...] Requesting: KUNAL MAYO M.D. Requesting Requesting ID: [id number] Attending Attending ID: [id number] Completed Time: 11/27/2016 09:07 AM Dictated Time: N/A Transcribed Time: 11/27/2016 09:29 AM Signed by: CAMRYN MEZA M.D. on 11/27/2016 09:29 AM Report To 1 ID: [id number] Report To 1 Name: HUY CIARRA Report To 1 FAX: Report To 2 ID: Report To 2 Name: , Report To 2 FAX: Report To 3 ID: Report To 3 Name: , Report To 3 FAX: NextGen Order #: Procedure Note Provider, MD Hue - 02/05/2017 EXAM: Bone mineral density [facility]. HISTORY: Postmenopausal female currently taking calcium and vitamin D. DXA BMD was done at [facility] on a Holo5by Discovery CI. Precision testing at this site [...] Requesting: KUNAL MAYO M.D. Requesting Requesting ID: [id number] Attending Attending ID: [id number] Completed Time: 11/27/2016 09:07 AM Dictated Time: N/A Transcribed Time: 11/27/2016 09:29 AM Signed by: CAMRYN MEZA M.D. on 11/27/2016 09:29 AM Report To 1 ID: [id number] Report To 1 Name: CIARRA SON Report To 1 FAX: Report To 2 ID: Report To 2 Name: , Report To 2 FAX: Report To 3 ID: Report To 3 Name: , Report To 3 FAX: NextGen Order #: Historical Provider IMShanel DXA PROCEDURES Final Result from Last 3 Months or Most Recently Relevant to Health Maintenance Insurance MEDICARE [facility] HU[employer]NA CHOICE MEDICARE PPO HU[employer] CHOICE MEDICARE PPO Care Teams Equipment Operat0R Relationship Specialty Start Date End Date No, Physician PCP - General 06/03/24
--- OUTSIDE RECORDS SUMMARY | 2025-03-16 15:06 | XMS_ITS | Encounter Summary ---
Author Organization [facility] [address] [place] [address] Care Team Providers Care Certified Travel Counselor Name Role Phone Arcenio Gleason MD Primary Care Provider Reason for Visit * Reason Onset Date Comments Question 08/10/2020 Sinusitis 08/10/2020 Congestion 08/10/2020 Cough 08/10/2020 Order 08/10/2020 for cvoid 19 geremias t vv given test site too far away Encounter Details Date Type Department Care Team (Late st Contact Info) Description 08/10/[address] [facility] [address] [facility], [address] [place] [address] Provider, [address] Question; Sinusitis; Congestion; Cough; Order (for cvoid 19 test vv given test site too far away) Social History Tobacco Use Types Packs/Day Years Used Date Smoking Tobacco: Never Smokeless Tobacco: Never Comments No Sex and Gender Information Value Date Recorded Sex Assigned at Not on file Legal Sex Female 6:21 AM DIRECTOR OF MANUFACTURING Gender Identity Not on file Sexual Orientation Not on file documented as of this encounter Miscellaneous Notes * Telephone Encounter - Belle Katz - 08/10/2020 2:30 PM CST Who is calling? self What is the reason for call? Took vv this morning was told get covid test all site are too far away. Expected Response from the Clinic? Call back CTOR OF MANUFACTURING documented in this encounter Plan of Treatment Not on file documented as of this encounter Visit Diagnoses Not on filedocumented in this encounter Care Teams Certified Travel Counselor Relationship Specialty Start Date End Date Arcenio Gleason MD [address] [place] [address] PCP - General Family Medicine 10/18/17 documented as of this encounter
--- OUTSIDE RECORDS SUMMARY | 2025-03-16 15:06 | XMS_ITS | Data Portability ---
Author Organization [facility] Address [address] [place] [address] Care Team Providers Care Child Welfare Social Worker Name Role Phone BARBARAJORGEPHILLIP Vaca Primary Care Provider Assessment No assessment recorded. Plan of Treatment Reminders Order Date Submit Date Provider Last Modified By Organization Details Last Modified Time Details Appointments None recorded. Lab None recorded. Referral None recorded. Procedures None recorded. Surgeries open reduction internal fixation, patella (SURG) 2023 024 [email or web address] Not available 5 11:09:07 Imaging XR, knee, 4 or more view [address] [place] [address], [address], 4 15:39:21 Medication Orders None recorded. Patient TargetsNo targets recorded. Patient InstructionsNo instructions recorded. Reason for Referral None Reported. Results Created Date Observation Date Name Description Value Unit Range Abnormal Flag Note LastModifiedBy Organization Detail LastModifiedTime 09/29/20 24 XR, knee, 4 or more view No observ ation record ed. [facility] [place] [address] [facility] [address], [address], 09/30/2024 15:39:21 Result Notes None recorded. Problems Name Problem SNOMED Code Status Onset Date Resolution Date Notes Provider Name and Address Organization Details Recorded Time Closed fracture of right patella 913516887374467 00 Active 2023 [place] [address] [facility] [address], [place], [address], [facility] 4 15:34:04 Problem Notes None recorded. Procedures Surgical History Date Name Laterality Status Provider Name and Address Organization Details Recorded Time Most Recent [place] [address] [facility] [address], [place], [address], [facility] 09/30/2024 14:55:32 Imaging Results None recorded. Procedure Notes None recorded. Medical Equipment None Reported. Allergies No known drug allergies Medications Name Sig Start Date Stop Date Status Note LastModified by Organization Details LastModified Time hydrocodone 5 mg-acetamin ophen 325 mg tablet TAKE 1 TABLET BY MOUTH EVERY 8 HOURS NEEDED FOR PAIN 09/30 completed Not Available Not Available Not Available alendronate 70 mg tablet 09/30 completed Not Available Not Available Not Available doxycycline monohydrate 100 mg tablet TAKE 1 TABLET BY MOUTH TWICE DAILY FOR 7 DAYS 09/30 completed Not Available Not Available Not Available triamcinolo ne acetonide 0.025 % topical cream APPLY TOPICALLY TO FACE TWICE DAILY FOR 2 WEEKS NEEDED 09/30 completed Not Available Not Available Not Available rosuvastati n 20 mg tablet 09/30 completed Not Available Not Available Not Available Xigduo XR 10 mg-1,000 mg tablet,exte nded release 09/30 completed Not Available Not Available Not Available Vitals Date Recorded Body weight Body mass index (BMI) Body height Provider Name and Address Organization Details Last Updated DateTime 09/30/2024 48883.12 g 19.7 kg/m2 162.56 [place] [address] [facility] [address], [place], [address] 09/30/2024 15:02:46 Social History Question Answer Notes LastModified by Organizat ion Details LastModified Time Tobacco Smoking Status [place] [address] [facility] [address], [place], [address], [facility] 09/30/2024 14:55:32 Last Dental Exam 06/07/2024 Informat ion not available 09/30/2024 Are You On Disability Or Applying For It? No Information not available 09/30/2024 Employment Status Part-time Information not available 09/30/2024 What Was The Date Of Your Most Recent Tobacco Screening? 1950 Information not available 09/30/2024 Sex: Unknown Functional Status Question Answer Note LastModified by Organizat ion Details LastModified Time Do you use any illicit or recreational drugs? No Information not available 09/30/2024 What is your level of alcohol consumption? 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 Family History Nothing Reported. Medical History No medical history recorded. 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 With approximat delia 5 mm of fracture gapping, she is indicated to undergo takedown of her nonunion and open reduction internal fixation. Risk and benefits of surgery were discussed the patient and her who noted their understand ing wanted to proceed. All questions were answered. Plan to proceed ORIF of her right patella fracture. Health Concerns Section Related Observation LastModified by Organization Detai ls LastModified Time None Recorded Concern Status LastModified by Organization Details LastModified Time None Recorded Advance Directives Directive None Recorded Payers Insurance Date Sequence Insurance Name Policy Number Policy Loja Covered Member ID Loja Member ID Guarantor Name 10/02/2024 1 [employer] (MEDICARE REPLACEMENT/A DVANTAGE - PPO) Georgina Lilly [id number] Georgina martinez Notes Date Note Type Note Provider Name and Address Organization Details Recorded Time 09/30/2024 text/html 73-year-old femlaura brand presents with 4 months of right knee pain. She fell in June of this year onto her right knee sustaining a patella fracture. She was treated nonoperatively by a surgeon in [place]. Since that time she has continued to have pain in her knee feels unstable. Has been taking ibuprofen [place] [address] [facility] [address], [place], [address], [facility] 10/01/2024 10:17:09 OBGyn Episode No OBEpisode recorded.
--- OUTSIDE RECORDS SUMMARY | 2025-03-16 15:06 | XMS_ITS | Encounter Summary ---
Author Organization [facility] Facility Care Team Providers Care Bench Lay Out Technician Name Role Phone Lelia Santacruz MD Primary Care Provider [phone] No, Physician Primary Care Provider [phone] Encounter Details Date Type Department Care Team (Latest Contact Info) Description 06/28/2017 Orders Only [facility] CLINCON[facility] Scanning, Provider Social History Tobacco Use Types Packs/Day Years Used Date Smoking Tobacco: Former Comments Unknown Sex and Gender Information Value Date Recorded Sex Assigned at Not on file Legal Sex Female 3:06 PM PATTERN GRADER Gender Identity Not on file Sexual Orientation Not on file documented as of this encounter Plan of Treatment Not on file documented as of this encounter Procedures Procedure Name Priority Date/Time Associated Diagnosis Comments STRESS ECHO EXERCISE W DOPPLER/CF WO CONTRAST 06/28/2017 4:10 PM CDT documented in this encounter Results * STRESS ECHO EXERCISE W DOPPLER/CF WO CONTRAST (06/28/2017 4:10 PM CDT) Anatomical Region Laterality Modality Echocardiography us Provider Scanning CV ECHO PROCEDURES Final Resul t documented in this encounter Visit Diagnoses Not on filedocumented in this encounter Care Teams Bench Lay Out Technician Relationship Specialty Start Date End Date Lelia Santacruz MD PCP - General 11/27/16 08/21/17 No, Physician PCP - General 06/03/24 documented as of this encounter
--- OUTSIDE RECORDS SUMMARY | 2025-03-16 15:06 | XMS_ITS | Patient Health Record ---
Author Organization [facility] Address [address] [place] [address] Allergies No Known Allergies Reason For Referral No Information Medications Medication SIG (Take, Route, Frequency, Duration) Notes Start Date End Date Status Alendronate Sodium 70 MG Oral for 84 Days Active Xigduo XR 10-1000 MG Oral for 90 Days Active Plan Of Treatment No Information Insurance Providers Payer Name Payer Address Payer Phone Subscriber Number Group Number Insured Name Patient Relationship to Insured Coverage Start Date Coverage End Date [employer] [address] [address] [place] [address] [phone] [id number] Georgina Guzman Self - patient is the insured Medical (General) History Medical History History ICD Code diabetes osteoporosis
== END 2025-03-16 14:00 | disposition home or self-care (01) ==
PROVIDERS: PCP Internal Medicine; Visit Provider Internal Medicine
DX: Z12.31 Encounter for screening mammogram for malignant neoplasm of breast (principal); R92.8 Other abnormal and inconclusive findings on diagnostic imaging of breast
CPT/HCPCS: 77063; 77067

== ENCOUNTER 2025-05-11 13:18 | Outpatient (CLI) | payer MEDICARE, SELFPAY ==
--- NOTE | ~2025-05-11 | US_ITS ---
US breast BI limited 05/11/2025 13:53 Indication: Bilateral periareolar densities Procedure: High-resolution Limited ultrasound of both breasts Comparison: Mammogram dated 03/16/2020 Findings: There is a small 2 mm cyst in the periareolar location of the right breast at 3:00. No susp icious masses are identified in either breast to suggest malignancy. Impression: 1: No sonographic evidence for malignancy in either breast. Routine yearly screening mammogram and regular clinical breast examination are recommended. BI-RADS CATEGORY 2 - BENIGN FINDINGS Reviewed, dictated and finalized at location A. Impression: 1: No sonographic evidence for malignancy in either breast. Routine yearly screening mammogram and regular clinical breast examination are recommended. BI-RADS CATEGORY 2 - BENIGN FINDINGS
--- OUTSIDE RECORDS SUMMARY | 2025-05-11 13:40 | XMS_ITS | Encounter Summary ---
Author Organization [facility] Facility Care Team Providers Care Hog Killer Name Role Phone Lelia Santacruz MD Primary Care Provider [phone] No, Physician Primary Care Provider Encounter Details Date Type Department Care Team (Latest Contact Info) Description 06/28/2017 Orders Only [facility] CLINCONV Scanning, Provider Social History Tobacco Use Types Packs/Day Years Used Date Smoking Tobacco: Former Comments Unknown Sex and Gender Information Value Date Recorded Sex Assigned at Not on file Legal Sex Female 3:06 PM GARBAGE COLLECTION SUPERVISOR Gender Identity Not on file Sexual Orientation [...] on filedocumented in this encounter Care Teams Hog Killer Relationship Specialty Start Date End Date Lelia Santacruz MD PCP - General 11/27/16 08/21/17 No, Physician PCP - General 06/03/24 documented as of this encounter
--- OUTSIDE RECORDS SUMMARY | 2025-05-11 13:40 | XMS_ITS | Clinical Summary ---
Author Organization [facility] Address [address] [place] [address] Phone Care Team Providers Care Sas Architect Name Role Phone Carissa Cabrera, Physician Primary [...] 2000 OSTEOPOROSIS SCREENING 2015 INFLUENZA VACCINE (#1) 2025 10/18/2017 RSV VACCINE (60+ or ) (1 - 1-dose 75+ series) 2025 Insurance MEDICARE PART A AND B BCBS SUPP Care Teams Sas Architect Relationship Specialty Start Date End Date Carissa Cabrera PhysicianMD [address] [place]: [facility] [place] [address] PCP - General Internal Medicine 07/30/19
--- OUTSIDE RECORDS SUMMARY | 2025-05-11 13:40 | XMS_ITS | Encounter Summary ---
Author Organization [facility] [address] [place] [address] Care Team Providers Care Veterinary Bacteriologist Name Role Phone Arcenio Gleason MD Primary Care Provider Reason for Visit * Reason Onset Date Comments Question 08/10/2020 Sinusitis 08/10/2020 Congestion 08/10/2020 Cough 08/10/2020 Order 08/10/2020 for cvoid 19 geremias t vv given test site too far away Encounter Details Date Type Department Care Team (Late st Contact Info) Description 08/10/2020 Telephone [facility] [address] [facility], [address] [place] [address] Provider, [address] Question; Sinusitis; Congestion; Cough; Order (for cvoid 19 test vv given test site too far away) Social History Tobacco Use Types Packs/Day Years Used Date Smoking Tobacco: Never Smokeless Tobacco: Never Comments No Sex and Gender Information Value Date Recorded Sex Assigned at Not on file Legal Sex Female 6:21 AM SOFTWARE DEVELOPMENT ANALYST Gender Identity Not on file Sexual Orientation Not on file documented as of this encounter Miscellaneous Notes * Telephone Encounter - Belle Katz - 08/10/2020 2:30 PM CST Who is calling? self What is the reason for call? Took vv this morning was told get covid test all site are too far away. Expected Response from the Clinic? Call back WARE DEVELOPMENT ANALYST documented in this encounter Plan of Treatment Not on file documented as of this encounter Visit Diagnoses Not on filedocumented in this encounter Care Teams Veterinary Bacteriologist Relationship Specialty Start Date End Date Arcenio Gleason MD [address] [place] [address] PCP - General Family Medicine 10/18/17 documented as of this encounter
--- OUTSIDE RECORDS SUMMARY | 2025-05-11 13:40 | XMS_ITS | Clinical Summary ---
Author Organization [facility] Address [address] [place] [address] Care Team Providers Care Fitting Supervisor Name Role Phone Arcenio Gleason MD Primary Care Provider [phone] Source Comments [facility],non-owned Affiliates and Associated Physician Practices is amultiple site organization consisting of ambulatory clinics and hospital sitesin [place], [place], [place] and [place]. This disclosure is being madepursuant to the Care Everywhere program and may not contain all information available regarding this patient. Last updated 18.[facility] Allergies No known active allergies Medications * [...] on file Legal Sex Female 6:21 AM HIDE SPREADER Gender Identity Not on file Sexual Orientation Not on file Last Filed Vital Signs Vital Sign Reading Time Taken Comments Blood Pressure 110/80 11/27/2018 12:11 PM HIDE SPREADER Pulse 99 11/27/2018 12:11 PM HIDE SPREADER Temperature 37.2 C (98.9 F) 11/27/2018 12:11 PM HIDE SPREADER Respiratory Rate 16 11/27/2018 12:11 PM HIDE SPREADER Oxygen Saturation 98% 11/27/2018 12:11 PM HIDE SPREADER Inhaled Oxygen Concentration - - Weight 56.7 kg (125 lb) 11/27/2018 12:11 PM HIDE SPREADER Height 162.6 cm (5' 4) 11/27/2018 12:11 PM HIDE SPREADER Body Mass Index 21.46 11/27/2018 12:11 PM HIDE SPREADER Plan of Treatment Health Maintenance Due Date [...] MEDICARE AWV CALENDAR YEAR 2024 INFLUENZA VACCINE (#1) 2025 10/18/2017 Respiratory Syncytial Virus (RSV) Vaccine Pt: or [...] patient's age to complete this topic Insurance [employer] MEDICARE ADV [place]MO & [place] [address] Care Teams Fitting Supervisor Relationship Specialty Start Date End Date Arcenio Gleason MD [address] [place] [address] PCP - General Family Medicine 10/18/17
--- OUTSIDE RECORDS SUMMARY | 2025-05-11 13:40 | XMS_ITS | Clinical Summary ---
Author Organization [facility] Address [address] [place] [address] Care Team Providers Care Self Contained Behavior Unit Teacher Name Role Phone No, Physician Primary Care Provider [phone] Allergies No known active allergies Medications alendronate [...] pain 06/11/2017 Loose body of knee 07/26/2015 Encounters Date Type Department Care Team Description 03/28/2025 8:15 AM CDT Office Visit [facility] at [address] [address] Celine Corona, BECCA Rash and nonspecific skin eruption (Primary Dx) from Last 3 Months Family History Medical History Relation Name Comments Arthritis Mother Family history of arthritis - (Added by TW Conv) Relation Name Status Comments Mother Social History Tobacco Use Types Packs/Day Years Used Date Smoking Tobacco: Former Comments Unknown Sex and Gender Information Value Date Recorded Sex Assigned at Not on file Legal Sex Female 3:06 PM DIE REAMER Gender Identity Not on file Sexual Orientation Not on file Obstetrics History Last Filed Vital Signs Vital Sign Reading Time Taken Comments Blood Pressure 112/70 03/28/2025 8:13 AM CDT Pulse 82 03/28/2025 8:13 AM CDT Temperature 36.7 C (98 F) 03/28/2025 8:13 AM CDT Respiratory Rate 20 03/28/2025 8:13 AM CDT Oxygen Saturation 98% 03/28/2025 8:13 AM CDT Inhaled Oxygen Concentration - - Weight 54 kg (119 lb) 03/28/2025 8:13 AM CDT Height 162.6 cm (5' 4) 03/28/2025 8:13 AM CDT Body Mass Index 20.43 03/28/2025 8:13 AM CDT Plan of Treatment Health Maintenance [...] Density Scan 11/27/2018 11/27/2016, 08/18/2013 Covid-19 Vaccine (4 - 2023-2 5 season) 2024 08/11/2021, 11/12/2020, 2020 Influenza Vaccine (#1) 2025 , 08/28/2018, 10/18/2017 Procedures Procedure Name Priority Date/Time Associated Diagnosis Comments SCREENING MAMMOGRAM BILATERAL W MARK W IMPLANTS Routine 09/12/2017 12:00 AM DIE REAMER DEXA AXIAL SKELETON BONE DENSITY 1 OR MORE SITES Routine 11/27/2016 9:07 AM DIE REAMER from Last 3 Months or Most Recently Relevant to Health Maintenance Results * Screening Mammogram Bilateral W Mark W Implants (09/12/2017 12:00 AM DIE REAMER) Anatomical Region Laterality Modality Breast Bilateral Mammography 09/12/2017 4:51 PM DIE REAMER Narrative 09/13/2017 8:36 PM DIE REAMER - SCREENING MAMM W IMPLANTS BI W MARK BILATERAL DIGITAL SCREENING MAMMOGRAM 3D/2D WITH CAD WITH AUGMENTATION: 09/12/2017 CLINICAL: Patient presents for screening mammogram. S/P bilateral augmentation. No complaints. Comparison is made to exams dated: 09/11/2016, 08/30/2015, 08/24/2014, 08/18/2013, 08/15/2012, and 08/10/2011 [facility]. There are scattered fibroglandular elements in [...] Exam Mammogram BI-RADS: 2 Benign Radiologist: TEODORA SUTLANA M.D. Attending: ARCENIO GLEASON Requesting: ARCENIO GLEASON Requesting Requesting ID: [id number] Attending Attending ID: [id number] Completed Time: 09/12/2017 10:51 AM Dictated Time: [...] 09/11/2016, 08/30/2015, 08/24/2014, 08/18/2013, 08/15/2012, and 08/10/2011 [facility]. There are scattered fibroglandular elements in [...] GLEASON Requesting: ARCENIO GLEASON Requesting Requesting ID: [id number] Attending Attending ID: [id number] Completed Time: 09/12/2017 10:51 AM Dictated Time: [...] 1 or 2 Site (11/27/2016 9:07 AM DIE REAMER) Anatomical Region Laterality Modality Body N/A Radiographic Marie ging 11/27/2016 9:07 AM DIE REAMER Narrative 11/27/2016 9:29 AM DIE REAMER EXAM: Bone mineral density [facility]. HISTORY: Postmenopausal female currently taking calcium and vitamin D. DXA BMD was done at [facility] on a [employer] CI. Precision testing at this site has [...] Requesting: KUNAL MAYO M.D. Requesting Requesting ID: [id number] Attending Attending ID: [id number] Completed Time: 11/27/2016 09:07 AM Dictated Time: N/A Transcribed Time: 11/27/2016 09:29 AM Signed by: CAMRYN MEZA M.D. on 11/27/2016 09:29 AM Report To 1 ID: [id number] Report To 1 Name: CIARRA SON Report To 1 FAX: Report To 2 ID: Report To 2 Name: , Report To 2 FAX: Report To 3 ID: Report To 3 Name: , Report To 3 FAX: NextGen Order #: Procedure Note Provider, MD Hue - 02/05/2017 EXAM: Bone mineral density [facility]. HISTORY: Postmenopausal female currently taking calcium and vitamin D. DXA BMD was done at [facility] on a [employer] CI. Precision testing at this site [...] Requesting: KUNAL MAYO M.D. Requesting Requesting ID: [id number] Attending Attending ID: [id number] Completed Time: 11/27/2016 09:07 AM Dictated Time: N/A Transcribed Time: 11/27/2016 09:29 AM Signed by: CAMRYN MEZA M.D. on 11/27/2016 09:29 AM Report To 1 ID: [id number] Report To 1 Name: CIARRA SON Report To 1 FAX: Report To 2 ID: Report To 2 Name: , Report To 2 FAX: Report To 3 ID: Report To 3 Name: , Report To 3 FAX: NextGen Order #: Historical Provider MD WATSON DXA PROCEDURES Final Result from Last 3 Months or Most Recently Relevant to Health Maintenance Insurance MEDICARE [facility] HUMANA CHOICE MEDICARE PPO HUMANA CHOICE MEDICARE PPO Care Teams Self Contained Behavior Unit Teacher Relationship Specialty Start Date End Date No, Physician PCP - General 06/03/24
--- OUTSIDE RECORDS SUMMARY | 2025-05-11 13:40 | XMS_ITS | Patient Health Record ---
Author Organization [facility] Address [address] [place] [address] Allergies No Known Allergies Reason For Referral No Information Medications Medication SIG (Take, Route, Frequency, Duration) Notes Start Date End Date Status Alendronate Sodium 70 MG Oral; Duration: 84 Days Active Xigduo XR 10-1000 MG Oral; Duration: 90 Days Active Plan Of Treatment No Information Insurance Providers Payer Name Payer Address Payer Phone Subscriber Number Group Number Insured Name Patient Relationship to Insured Coverage Start Date Coverage End Date HU[employer] [address] [address] [place] [address] [id number] Georgina Guzman Self - patient is the insured Medical (General) History Medical History History ICD Code diabetes osteoporosis
--- OUTSIDE RECORDS SUMMARY | 2025-05-11 13:40 | XMS_ITS | Clinical Summary ---
Author Organization [facility] Address [address] [place] [address] Care Team Providers Care Coal Shoveler Name Role Phone Unavailable Primary Care Provider Unavailabl e Immunizations Immunization Administration Dates Next Due Covid-19, Mrna, Lnp-s, PF, 1 00 mcg/0.5 mL Dose (Moderna) 2020 Social History Tobacco Use Types Packs/Day Years Used Date Smoking Tobacco: Never Assessed Comments Unknown Sex and Gender Information Value Date Recorded Sex Assigned at Not on file Legal Sex Female 10:37 AM LABORATORY VETERINARIAN Gender Identity Not on file Sexual Orientation Not on file Plan of Treatment Health Maintenance Due Date Last Done Comments Hepatitis C Virus (HCV) Screening 1950 TdaP Immunization 1950 Cologuard 1995 Colonoscopy 1995 Colorectal Cancer Screening 1995 Immunochemical Fecal Occult Blood 1995 Pneumococcal Immunization (5 0+ years) (1 of 1 - PCV) 2000 Zoster Immunization (1 of 2) 2000 SARS-COV-2 Immunization (2 - season) 2024 2020 Influenza Immunization (#1) 2025 10/18/2017 Respiratory Syncytial Virus (RSV) Immunization (Adult) (1 - 1-dose 75+ series) 2025 Hepatitis B Immunization Aged Out No longer eligible based on patient's age to complete this topic Human Papillomavirus (HPV) Immunization Aged Out No longer eligible b ased on patient's age to complete this topic Meningococcal Immunization (ACWY) Aged Out No longer eligible based on patient's age to complete this topic Rotavirus Immunization Aged Out No lo nger eligible based on patient's age to complete this topic
== END 2025-05-11 13:19 | disposition home or self-care (01) ==
LOC: ANHIMG 13:19
PROVIDERS: PCP Internal Medicine; Visit Provider Internal Medicine
DX: R92.8 Other abnormal and inconclusive findings on diagnostic imaging of breast (principal)
CPT/HCPCS: 76642

== ENCOUNTER 2025-05-18 12:29 | Outpatient (CLI) | payer MEDICARE, SELFPAY ==
--- NOTE | ~2025-05-18 | DEXA_ITS ---
Bone Density Report Name: ASA BREWER Age: 74 Sex: Female Ethnicity: White Date of : 1950 Indication: osteopenia; height loss; Referring Provider: PHILLIP MOSCOSO Study: Bone densitometry was performed. Exam Date: May 18, 2025 Accession number: [id number] Bone Density: Region BMD T-score Z-score Classification AP Spine(L1-L4) 0.990 -0.5 1.9 Normal Femoral Neck (Left) 0.633 -1.9 0.1 Osteopenia Total Hip (Left) 0.809 -1.1 0.7 Osteopenia Femoral Neck (Right) 0.642 -1.9 0.2 Osteopenia Total Hip (Right) 0.749 -1.6 0.2 Osteopenia Total Hip Mean 0.779 -1.4 0.5 Osteopenia World Health Organization criteria for BMD impression classify patients as: Normal (T-score at or above -1.0), Osteopenia (T-score between -1.0 and -2.5), or Osteoporosis (T-score at or below -2.5). 10-year Fracture Risk(1): Major Osteoporotic Fracture 11% Hip Fracture 2.8% Reported Risk Factors: [place] (), Neck BMD=0.633, BMI=20.3 (1) FRAX(R) Version 3.08. Fracture probability calculated for an untreated patient. Fracture probability may be lower if the patient has received treatment. Previous Exams: Region Exam Age BMD T-score BMD Change BMD Change Date g/cm2 vs Baseline vs Previous AP Spine (L1-L4) 05/18/2025 74 0.990 -0.5 0.063 (6.8%)* 0.063 (6.8%)* 05/10/2022 71 0.927 -1.1 Total Hip(Left) 05/18/2025 74 0.809 -1.1 0.077 (10.5%)* 0.077 (10.5%)* 05/10/2022 71 0.732 -1.7 Total Hip(Right) 05/18/2025 74 0.749 -1.6 0.017 (2.3%) 0.017 (2.3%) 05/10/2022 71 0.732 -1.7 *Denotes significance at 95% confidence level, LSC for AP Spine = 0.022 g/cm2, LSC for Total Hip = 0.027 g/cm2 Clinical Information Provided by Patient: Has used the following medications: Actonel (i.e. risedronate), Vitamin D, Calcium Patient maximum height was 65.5 Menopause Age: 55 Does not regularly consume dairy products Onset of menses at age 14 Number of children 0 Impression: The patient has low bone mass, based on the Left Femoral Neck T-score. The patient has an estimated ten-year risk of hip fracture of 2.8% and an estimated ten-year risk of major fracture of 11%, based on the WHO FRAX algorithm. No significant bone loss was observed. Discussion: BONE DENSITY IS LOW AT ONE OR MORE SKELETAL SITES. This patient's lowest T-score is low at one or more skeletal sites. It meets the World Health Organization's (WHO) criteria for ?low bone mass? (T-score between -1.0 and -2.5). The patient's 10-year risk of fracture as calculated by FRAX is less than the threshold where pharmacological therapy is recommended by the National Osteoporosis Foundation (NOF). However, all treatment decisions require clinical judgment and consideration of individual patient factors, including patient preferences, comorbidities, previous drug use, risk factors not captured in the FRAX model (e.g., frailty, falls, vitamin D deficiency, increased bone turnover, interval significant decline in bone density) and possible under or overestimation of fracture risk by FRAX. The patient should follow a healthful lifestyle (good nutrition with adequate calcium and vitamin D, and appropriate weight-bearing exercise). Follow-Up: Consider repeating this study in 2 to 3 years to reassess this patient's status, or sooner if there is some new clinical indication. Reported by: EDYTA on 05/18/2025 1:08:00 PM. Reviewed, dictated and finalized at location A.
--- OUTSIDE RECORDS SUMMARY | 2025-05-18 13:16 | XMS_ITS | Patient Health Record ---
Author Organization [facility] Address [address] [place], [place] [id number] Support Name Relationship Address Phone ASA BREWER Guarantor Unknown Reason For Referral No Information Plan Of Treatment No Information Insurance Providers Payer Name Payer Address Payer Phone Subscriber Number Group Number Insured Name Patient Relationship to Insured Coverage Start Date Coverage End Date Medicare Part B [place] [address] [place] [address] [id number] ASA BREWER Self - patient is the insured [facility] ([facility]) ATTN CLAIMS [address] [place] [address] [id number] ASA BREWER Self - patient is the insured
--- OUTSIDE RECORDS SUMMARY | 2025-05-18 13:16 | XMS_ITS | Clinical Summary ---
Author Organization [facility] Address [address] [place] [address] Phone Care Team Providers Care Director Of Cardiology Service Line Name Role Phone Carissa Cabrera, Physician Primary [...] A AND B BCBS SUPP Care Teams Director Of Cardiology Service Line Relationship Specialty Start Date End Date Carissa Cabrera PhysicianMD [address] [place]: [facility] [address] PCP - General Internal Medicine 07/30/19
--- OUTSIDE RECORDS SUMMARY | 2025-05-18 13:16 | XMS_ITS | Encounter Summary ---
Author Organization [facility] Care Team Providers Care Machine Design Checker Name Role Phone Lelia Santacruz MD Primary Care Provider [phone] No, Physician Primary Care Provider [phone] Encounter Details Date Type Department Care Team (Latest Contact Info) Description 06/28/2017 Orders Only [facility]CON[facility] Scanning, Provider Social History Tobacco Use Types Packs/Day Years Used Date Smoking Tobacco: Former Comments Unknown Sex and Gender Information Value Date Recorded Sex Assigned at Not on file Legal Sex Female 3:06 PM BIOLOGICAL LAB TECHNICIAN Gender Identity Not on file Sexual Orientation [...] on filedocumented in this encounter Care Teams Machine Design Checker Relationship Specialty Start Date End Date Lelia Santacruz MD PCP - General 11/27/16 08/21/17 No, Physician PCP - General 06/03/24 documented as of this encounter
--- OUTSIDE RECORDS SUMMARY | 2025-05-18 13:16 | XMS_ITS | Patient Health Record ---
Author Organization [facility] Address [address] [place] [phone] Allergies No Known Allergies Reason For Referral [...] Date Coverage End Date [employer] [address] [address] [place] [address] [id number] Georgina Guzman Self - patient is the insured Medical (General) History Medical History History ICD Code diabetes osteoporosis
--- OUTSIDE RECORDS SUMMARY | 2025-05-18 13:16 | XMS_ITS | Clinical Summary ---
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
--- OUTSIDE RECORDS SUMMARY | 2025-05-18 13:16 | XMS_ITS | Clinical Summary ---
Author Organization [facility] Address [address] [facility] [place] [address] Care Team Providers Care Supervisor Electron Tube Processing Name Role Phone Arcenio Gleason MD Primary Care Provider [phone] Source Comments [facility],non-owned Affiliates and Associated Physician Practices is amultiple site organization consisting of ambulatory clinics and hospital sitesin [place], [place], [place] and [place]. This disclosure is being madepursuant to the Care Everywhere program and may not contain all information available regarding this patient. Last updated 18.[facility] Allergies No known active allergies Medications * [...] on file Legal Sex Female 6:21 AM PROFESSOR OF PSYCHIATRY Gender Identity Not on file Sexual Orientation Not on file Last Filed Vital Signs Vital Sign Reading Time Taken Comments Blood Pressure 110/80 11/27/2018 12:11 PM PROFESSOR OF PSYCHIATRY Pulse 99 11/27/2018 12:11 PM PROFESSOR OF PSYCHIATRY Temperature 37.2 C (98.9 F) 11/27/2018 12:11 PM PROFESSOR OF PSYCHIATRY Respiratory Rate 16 11/27/2018 12:11 PM PROFESSOR OF PSYCHIATRY Oxygen Saturation 98% 11/27/2018 12:11 PM PROFESSOR OF PSYCHIATRY Inhaled Oxygen Concentration - - Weight 56.7 kg (125 lb) 11/27/2018 12:11 PM PROFESSOR OF PSYCHIATRY Height 162.6 cm (5' 4) 11/27/2018 12:11 PM PROFESSOR OF PSYCHIATRY Body Mass Index 21.46 11/27/2018 12:11 PM PROFESSOR OF PSYCHIATRY Plan of Treatment Health Maintenance Due Date [...] HUMANA MEDICARE ADV [place]MO [place] [address] Care Teams Supervisor Electron Tube Processing Relationship Specialty Start Date End Date Arcenio Gleason MD [address] [place] [address] PCP - General Family Medicine 10/18/17
--- OUTSIDE RECORDS SUMMARY | 2025-05-18 13:16 | XMS_ITS | Encounter Summary ---
Author Organization [facility] [address] [place] [address] Care Team Providers Care Raw Material Planner Name Role Phone Arcenio Gleason MD Primary Care Provider Reason for Visit * Reason Onset Date Comments Question 08/10/2020 Sinusitis 08/10/2020 Congestion 08/10/2020 Cough 08/10/2020 Order 08/10/2020 for cvoid 19 geremias t vv given test site too far away Encounter Details Date Type Department Care Team (Late st Contact Info) Description 08/10/2020 Telephone [facility] [address] [facility], [address] [place] [address] Provider, [address] Question; Sinusitis; Congestion; Cough; Order (for cvoid 19 test vv given test site too far away) Social History Tobacco Use Types Packs/Day Years Used Date Smoking Tobacco: Never Smokeless Tobacco: Never Comments No Sex and Gender Information Value Date Recorded Sex Assigned at Not on file Legal Sex Female 6:21 AM ECMO SPECIALIST Gender Identity Not on file Sexual Orientation Not on file documented as of this encounter Miscellaneous Notes * Telephone Encounter - Belle Katz - 08/10/2020 2:30 PM CST Who is calling? self What is the reason for call? Took vv this morning was told get covid test all site are too far away. Expected Response from the Clinic? Call back SPECIALIST documented in this encounter Plan of Treatment Not on file documented as of this encounter Visit Diagnoses Not on filedocumented in this encounter Care Teams Raw Material Planner Relationship Specialty Start Date End Date Arcenio Gleason MD [address] [place] [address] PCP - General Family Medicine 10/18/17 documented as of this encounter
--- OUTSIDE RECORDS SUMMARY | 2025-05-18 13:16 | XMS_ITS | Clinical Summary ---
Author Organization [facility] Address [address] [place] [address] Care Team Providers Care Pick Remover Name Role Phone No, Physician Primary Care Provider [phone] Allergies No known active allergies Medications alendronate [...] Description 03/28/2025 8:15 AM CDT Office Visit [facility] Con[facility] Care at [address] [address] Celine Corona, BECCA Rash and [...] on file Legal Sex Female 3:06 PM WOUND CARE RN Gender Identity Not on file Sexual Orientation [...] MARK W IMPLANTS Routine 09/12/2017 12:00 AM WOUND CARE RN DEXA AXIAL SKELETON BONE DENSITY 1 OR MORE SITES Routine 11/27/2016 9:07 AM WOUND CARE RN from Last 3 Months or Most Recently Relevant to Health Maintenance Results * Screening Mammogram Bilateral W Mark W Implants (09/12/2017 12:00 AM WOUND CARE RN) Anatomical Region Laterality Modality Breast Bilateral Mammography 09/12/2017 4:51 PM WOUND CARE RN Narrative 09/13/2017 8:36 PM WOUND CARE RN - SCREENING MAMM W IMPLANTS BI W MARK BILATERAL DIGITAL SCREENING MAMMOGRAM 3D/2D WITH CAD WITH AUGMENTATION: 09/12/2017 CLINICAL: Patient presents for screening mammogram. S/P bilateral augmentation. No complaints. Comparison is made to exams dated: 09/11/2016, 08/30/2015, 08/24/2014, 08/18/2013, 08/15/2012, and 08/10/2011 [facility]. There are scattered fibroglandular elements in [...] GLEASON Requesting: ARCENIO GLEASON Requesting Requesting ID: [id number] Attending Attending ID: [id number] Completed Time: 09/12/2017 10:51 AM Dictated Time: [...] 09/11/2016, 08/30/2015, 08/24/2014, 08/18/2013, 08/15/2012, and 08/10/2011 [facility]. There are scattered fibroglandular elements in [...] GLEASON Requesting: ARCENIO GLEASON Requesting Requesting ID: [id number] Attending Attending ID: [id number] Completed Time: 09/12/2017 10:51 AM Dictated Time: [...] 1 or 2 Site (11/27/2016 9:07 AM WOUND CARE RN) Anatomical Region Laterality Modality Body N/A Radiographic Marie ging 11/27/2016 9:07 AM WOUND CARE RN Narrative 11/27/2016 9:29 AM WOUND CARE RN EXAM: Bone mineral density [facility]. HISTORY: Postmenopausal female currently taking calcium and vitamin D. DXA BMD was done at [facility] on a [employer] CI. Precision testing at this site has [...] Requesting: KUNAL MAYO M.D. Requesting Requesting ID: [id number] Attending Attending ID: [id number] Completed Time: 11/27/2016 09:07 AM Dictated Time: N/A Transcribed Time: 11/27/2016 09:29 AM Signed by: CAMRYN MEZA M.D. on 11/27/2016 09:29 AM Report To 1 ID: [id number] Report To 1 Name: CIARRA SON Report To 1 FAX: Report To 2 ID: Report To 2 Name: , Report To 2 FAX: Report To 3 ID: Report To 3 Name: , Report To 3 FAX: NextGen Order #: Procedure Note Provider, MD Hue - 02/05/2017 EXAM: Bone mineral density [facility]. HISTORY: Postmenopausal female currently taking calcium and vitamin D. DXA BMD was done at [facility] on a [employer] CI. Precision testing at this site [...] Requesting: KUNAL MAYO M.D. Requesting Requesting ID: [id number] Attending Attending ID: [id number] Completed Time: 11/27/2016 09:07 AM Dictated Time: N/A Transcribed Time: 11/27/2016 09:29 AM Signed by: CAMRYN MEZA M.D. on 11/27/2016 09:29 AM Report To 1 ID: [id number] Report To 1 Name: CIARRA SON Report To 1 FAX: Report To 2 ID: Report To 2 Name: , Report To 2 FAX: Report To 3 ID: Report To 3 Name: , Report To 3 FAX: NextGen Order #: Historical Provider MD WATSON DXA PROCEDURES Final Result from Last 3 Months or Most Recently Relevant to Health Maintenance Insurance MEDICARE [facility] HUMANA CHOICE MEDICARE PPO HUMANA CHOICE MEDICARE PPO Care Teams Pick Remover Relationship Specialty Start Date End Date No, Physician PCP - General 06/03/24
== END 2025-05-18 12:30 | disposition home or self-care (01) ==
LOC: ANHIMG 12:30
PROVIDERS: PCP Internal Medicine; Visit Provider Internal Medicine
DX: N95.9 Unspecified menopausal and perimenopausal disorder (principal); M85.80 Other specified disorders of bone density and structure, unspecified site; S62.101A Fracture of unspecified carpal bone, right wrist, initial encounter for closed fracture; X58.XXXA Exposure to other specified factors, initial encounter; S82.001S Unspecified fracture of right patella, sequela; X58.XXXS Exposure to other specified factors, sequela
CPT/HCPCS: 77080

== ENCOUNTER 2025-08-04 10:41 | Outpatient (CLI) | payer MEDICARE, SELFPAY ==
--- NOTE | ~2025-08-04 | XR_ITS ---
EXAMINATION: XR pelvis min 3V, 08/04/2025 11:10 BANANA CARRIER HISTORY: M54.9 - Dorsalgia, unspecified, LEG WEAKNESS COMPARISON: No comparisons available. Findings: No acute fracture or malalignment. No significant degenerative changes. Soft tissues unremarkable. Impression: No acute fracture or malalignment. Reviewed, dictated and finalized at location P. NA CARRIER Impression: No acute fracture or malalignment.
--- NOTE | ~2025-08-04 | XR_ITS ---
XR lumbar spine min 4V Indication: M54.9 - Dorsalgia, unspecified, LEG WEAKNESS Comparison: None Findings: No fracture, no subluxation flexion and extension. There is a remote superior endplate fracture of T12. Moderate to severe loss of disc height at L4-5 and L5-S1. Soft tissues unremarkable Impression: No acute abnormality. Reviewed, dictated and finalized at location P. ING MACHINE ADJUSTER Impression: No acute abnormality.
--- NOTE | ~2025-08-04 | XR_ITS ---
EXAM/PROCEDURE: XR chest 2V HISTORY: R05.3 - Chronic cough X 2 MONTHS COMPARISON: November 01, 2022 TECHNIQUE: view(s) of the chest. FINDINGS: LUNGS: Clear of acute processes. PLEURAL SPACES: Clear. No evidence of fluid or pneumothorax. HEART/ MEDIASTINUM: Normal in appearance. SOFT TISSUES: No significant findings. BONES: No acute osseous abnormality. Multiple bilateral old healed rib fractures. IMPRESSION: No acute findings. Reviewed, dictated and finalized at location A. [facility] IMPRESSION: No acute findings.
== END 2025-08-04 10:42 | disposition home or self-care (01) ==
PROVIDERS: PCP Internal Medicine; Visit Provider Internal Medicine
DX: R29.898 Other symptoms and signs involving the musculoskeletal system (principal); R05.3 Chronic cough
CPT/HCPCS: 71046; 72110; 72190